=== PATIENT | female | born 1965 ===

== ENCOUNTER 2022-12-14 11:00 | Emergency (ER) | payer OTHER, SELFPAY ==
--- NOTE | ~2022-12-14 | US_ITS ---
EXAMINATION: US ABDOMEN LIMITED CLINICAL INFORMATION: Right upper quadrant pain.. COMPARISON: None available. TECHNIQUE: Real-time imaging of the right upper quadrant abdominal viscera. FINDINGS: GALLBLADDER: There are echogenic gallstones with mild wall thickening measuring 0.4 cm. There is trace fluid within the gallbladder wall. No pericholecystic fluid collection seen. There is no tenderness in right upper quadrant. COMMON BILE DUCT: Normal in caliber measuring 1.0 cm in diameter. US/US abdomen limited IMPRESSION: 1. Cholelithiasis with mild wall thickening and trace fluid within the gallbladder wall. There is no tenderness in right upper quadrant by ultrasound probe. 2. Mild common bile duct dilatation measuring 1.0 cm.
--- NOTE | ~2022-12-14 | XR_ITS ---
EXAMINATION: XR CHEST CLINICAL INFORMATION: Chest pain COMPARISON: None available. TECHNIQUE: 2 views of the chest were obtained. FINDINGS: There is no pneumothorax, pleural reaction, infiltrate, or effusion. An oval density central right upper lobe 1.2 x 1.6 cm likely represents artifact, corresponding to the overlying first costochondral junction. The heart is normal in size. The hilar and mediastinal contours are normal. There is dextrocurvature lower thoracic spine and levocurvature upper lumbar spine. No paraspinal soft tissue swelling. XR/XR chest 2V IMPRESSION: -Oval density right upper lobe approximately 1.5 cm likely artifact from overlying first costochondral junction. Recommend apical lordotic chest x-ray to exclude pulmonary parenchymal lesion. -No pneumothorax, infiltrate, or effusion.
--- NOTE | 2022-12-14 11:02 | ECG_ITS ---
Test Reason : CHEST PAIN Blood Pressure : / mmHG Vent. Rate : 089 BPM Atrial Rate : 089 BPM P-R Int : 130 ms QRS Dur : 084 ms QT Int : 398 ms P-R-T Axes : 049 044 048 degrees QTc Int : 484 ms Normal sinus rhythm Prolonged QT Abnormal ECG No previous ECGs available Referred By: Generic ED Physician Electronically Signed By:WESTON HOOD MD
[2022-12-14 11:08] VITALS: BP 111/69; PULSE 92; RESP 18; TEMP 36.6; O2SAT 100; BMI 21.6
--- NOTE | 2022-12-14 11:19 | ED_ITS ---
HPI - General Adult General Chief complaint: Abdominal Pain <Feliberto Arciniega - Last Filed: 12/14/22 11:20> Stated complaint: chest pain <Feliberto Arciniega - Last Filed: 12/14/22 11:20> Time Seen by Provider: 12/14/22 17:23 <Feliberto Arciniega - Last Filed: 12/14/22 11:20> Source: patient <Dustin Dan MD - Last Filed: 12/15/22 02:05> Mode of arrival: ambulatory <Dustin Dan MD - Last Filed: 12/15/22 02:05> Limitations: no limitations <Dustin Dan MD - Last Filed: 12/15/22 02:05> History of Present Illness HPI narrative: Patient complaining of abdominal pain mostly in the left side and epigastric since yesterday onto 2 times earlier today pain at this time is much better and slight pain noticed on the left side or on her right side never had similar pain in the past no fever no chills symptoms no abdominal distension normal bowel movements <Dustin Dan MD - Last Filed: 12/15/22 02:05> Related Data Home medications: Previous Rx's Medication Instructions Recorded ondansetron 4 mg disintegrating 4 mg PO Q6-8H PRN nausea and 12/14/22 tablet vomiting #7 tabs tramadol 50 mg tablet 50 mg PO Q6H PRN pain #20 tabs 12/14/22 <Feliberto Arciniega - Last Filed: 12/14/22 11:20> Allergies/adverse reactions: Allergies Allergy/AdvReac Type Severity Reaction Status Date / Time No Known Allergies Allergy Unverified 06/11/20 16:28 [No Known Allergies*] <Feliberto Arciniega - Last Filed: 12/14/22 11:20> Review of Systems Review of Systems: Yes all other systems are reviewed and are negative <Dustin Dan MD - Last Filed: 12/15/22 02:05> PMFSH Past Medical History Medical History: Medical History No pertinent past medical history <Feliberto Arciniega - Last Filed: 12/14/22 11:20> Social History Social History: Social History Alcohol intake: never Smoked in Last 30 Days: No Use of substances other than those prescribed or required for medical reasons: No Advance Directives: No Advance Directives Information Provided: Yes Patient : No <Feliberto Arciniega - Last Filed: 12/14/22 11:20> Physical Exam ED Vital Signs: Vital Signs - 24 hr 12/14/22 11:08 12/14/22 15:04 12/14/22 19:29 Temperature 97.8 F 97.7 F 98.3 F Pulse Rate 92 96 85 Respiratory Rate 18 16 18 Blood Pressure 111/69 138/91 H 133/74 Pulse Oximetry 100 98 97 Oxygen Delivery Method Room Air Room Air Room Air 12/14/22 20:17 Temperature 98.3 F Pulse Rate 88 Respiratory Rate 18 Blood Pressure 149/63 H Pulse Oximetry 99 Oxygen Delivery Method Room Air BMI result Body Mass Index 21.6 <Feliberto Arciniega - Last Filed: 12/14/22 11:20> Vital Signs - 24 hr 12/14/22 11:08 12/14/22 15:04 12/14/22 19:29 Temperature 97.8 F 97.7 F 98.3 F Pulse Rate 92 96 85 Respiratory Rate 18 16 18 Blood Pressure 111/69 138/91 H 133/74 Pulse Oximetry 100 98 97 Oxygen Delivery Method Room Air Room Air Room Air 12/14/22 20:17 Temperature 98.3 F Pulse Rate 88 Respiratory Rate 18 Blood Pressure 149/63 H Pulse Oximetry 99 Oxygen Delivery Method Room Air BMI result Body Mass Index 21.6 <Dustin Dan MD - Last Filed: 12/15/22 02:05> Appearance: Alert. Oriented X3. No acute distress. Eyes: No pallor or icterus ENT: Pharynx normal. Oral Mucosa moist Neck: Normal inspection. Neck supple. CVS: Normal heart rate and rhythm. Pulses normal. Respiratory: No respiratory distress. Equal air entry bilateral, no wheez ing/rales/rhonchi Abdomen: Soft , mild left upper abdominal tenderness no rebound tenderness without Bowel sounds are present, no mass palpable, no CVA tenderness Skin: Skin warm and dry. Normal skin color. Normal skin turgor. Extremities: No lower extremity edema. No calf tenderness Neuro: Oriented X 3. No motor deficit. <Dustin Dan MD - Last Filed: 12/15/22 02:05> Course Course Course Narrative: RME- patient presents for evaluation of what she describes as chest pain, which she appears to be holding her epigastric area. She complains of pain with nausea and vomiting x3 days. Cardiac workup as well as a CMP with LFTs and lipase have been ordered <Feliberto Arciniega - Last Filed: 12/14/22 11:20> Medical Decision Making Medical Decision Making [facility] Narrative: Patient nonspecific left upper abdomen and epigastric tenderness ultrasound was done to rule out cholecystitis Miguel sign was negative show some gallstones without any signs of cholecystitis patient is pain-free at this time discharge patient home advised to follow with surgeon <Dustin Dan MD - Last Filed: 12/15/22 02:05> Lab Data [facility] Lab Attestation statement: I reviewed the patient's lab results. <Dustin Dan MD - Last Filed: 12/15/22 02:05> Result Diagrams: 12/14/22 11:17 12/14/22 11:17 <Feliberto Arciniega - Last Filed: 12/14/22 11:20> Labs: Lab Results 12/14/22 12/14/22 12/14/22 Range/Units 11:17 11:17 11:17 WBC 13.0 H (4.8-10.8) X10*3/uL RBC 4.10 L (4.20-5.50) X10*6/uL Hgb 12.9 (12.0-16.0) g/dl Hct 37.1 (37.0-47.0) % MCV 90.5 (80.0-98.0) fL MCH 31.5 (27.0-33.0) pg MCHC 34.8 (31.0-35.0) g/dl RDW 12.3 (11.0-16.0) % Plt Count 261 (160-400) X10*3/uL MPV 9.4 (9.4-12.3) fL Immature Gran % (Auto) 0.3 (0.0-0.4) % Neut % (Auto) 85.7 H (45-73) % Lymph % (Auto) 8.7 L (20-40) % [place] % (Auto) 5.1 (2-11) % Eos % (Auto) 0.0 (0-4) % Baso % (Auto) 0.2 (0-2) % Lymph # (Auto) 1.1 L (1.2-4.9) X10*3/uL [place] # (Auto) 0.7 (0.1-1.2) X10*3/uL Eos # (Auto) 0.0 (0.0-0.4) X10*3/uL Baso # (Auto) 0.0 (0.0-0.2) X10*3/uL Abs Immat Gran (auto) 0.04 H (0.00-0.03) X10*3/uL Absolute Neuts (auto) 11.2 H (2.0-8.3) x10*3/uL Absolute Nucleated RBC 0.000 (0.0-0.012) X10*3/uL Nucleated RBC % (auto) 0.0 (0.0-0.2) /100WBC Sodium 142 (135-145) mmol/L Potassium 3.5 (3.3-5.1) mmol/L Chloride 108 (96-108) mmol/L Carbon Dioxide 23 (22-29) mmol/L Anion Gap 15 (12-20) BUN 11 (9-16) mg/dL Creatinine 0.68 (0.5-1.4) mg/dL Estim Creat Clear Calc 55.6 Estimated GFR > 60 Random Glucose 150 H (60-115) mg/dL Calcium 8.9 (8.4-10.2) mg/dL Total Bilirubin 1.6 H (0.0-1.0) mg/dL AST 92 H (5-31) U/L ALT 44 H (0-31) U/L Alkaline Phosphatase 96 (39-117) U/L Troponin I High Sens < 3.5 (<3.5-17.0) ng/L Total Protein 6.9 (6.5-8.0) g/dL Albumin 4.5 (3.5-5.0) g/dL Lipase 24 (8-78) U/L Urine Color Urine Appearance Urine pH (5.0-9.0) Ur Specific [place] (1.005-1.025) Urine Protein (Neg-Trace) mg/dL Urine Glucose (UA) (Negative) mg/dL Urine Ketones (Negative) mg/dL Urine Blood (Negative) Urine Nitrite (Negative) Ur Leukocyte Esterase (Negative) Urine RBC (0-2) /HPF Urine WBC (0-5) /HPF Ur Squamous Epith Cells (0-2) /HPF Urine Bacteria (None Seen) Hyaline Casts (0-2) /LPF 12/14/22 Range/Units 19:06 WBC (4.8-10.8) X10*3/uL RBC (4.20-5.50) X10*6/uL Hgb (12.0-16.0) g/dl Hct (37.0-47.0) % MCV (80.0-98.0) fL MCH (27.0-33.0) pg MCHC (31.0-35.0) g/dl RDW (11.0-16.0) % Plt Count (160-400) X10*3/uL MPV (9.4-12.3) fL Immature Gran % (Auto) (0.0-0.4) % Neut % (Auto) (45-73) % Lymph % (Auto) (20-40) % [place] % (Auto) (2-11) % Eos % (Auto) (0-4) % Baso % (Auto) (0-2) % Lymph # (Auto) (1.2-4.9) X10*3/uL [place] # (Auto) (0.1-1.2) X10*3/uL Eos # (Auto) (0.0-0.4) X10*3/uL Baso # (Auto) (0.0-0.2) X10*3/uL Abs Immat Gran (auto) (0.00-0.03) X10*3/uL Absolute Neuts (auto) (2.0-8.3) x10*3/uL Absolute Nucleated RBC (0.0-0.012) X10*3/uL Nucleated RBC % (auto) (0.0-0.2) /100WBC Sodium (135-145) mmol/L Potassium (3.3-5.1) mmol/L Chloride (96-108) mmol/L Carbon Dioxide (22-29) mmol/L Anion Gap (12-20) BUN (9-16) mg/dL Creatinine (0.5-1.4) mg/dL Estim Creat Clear Calc Estimated GFR Random Glucose (60-115) mg/dL Calcium (8.4-10.2) mg/dL Total Bilirubin (0.0-1.0) mg/dL AST (5-31) U/L ALT (0-31) U/L Alkaline Phosphatase (39-117) U/L Troponin I High Sens (<3.5-17.0) ng/L Total Protein (6.5-8.0) g/dL Albumin (3.5-5.0) g/dL Lipase (8-78) U/L Urine Color Dark Yellow Urine Appearance Turbid Urine pH >= 9.0 (5.0-9.0) Ur Specific [place] 1.025 (1.005-1.025) Urine Protein 30 (1+) H (Neg-Trace) mg/dL Urine Glucose (UA) Negative (Negative) mg/dL Urine Ketones Trace (Negative) mg/dL Urine Blood Negative (Negative) Urine Nitrite Negative (Negative) Ur Leukocyte Esterase Trace H (Negative) Urine RBC 6-10 H (0-2) /HPF Urine WBC 0-5 (0-5) /HPF Ur Squamous Epith Cells 0-2 (0-2) /HPF Urine Bacteria None Seen (None Seen) Hyaline Casts 0-2 (0-2) /LPF <Feliberto Arciniega - Last Filed: 12/14/22 11:20> Lab Results 12/14/22 12/14/22 12/14/22 Range/Units 11:17 11:17 11:17 WBC 13.0 H (4.8-10.8) X10*3/uL RBC 4.10 L (4.20-5.50) X10*6/uL Hgb 12.9 (12.0-16.0) g/dl Hct 37.1 (37.0-47.0) % MCV 90.5 (80.0-98.0) fL MCH 31.5 (27.0-33.0) pg MCHC 34.8 (31.0-35.0) g/dl RDW 12.3 (11.0-16.0) % Plt Count 261 (160-400) X10*3/uL MPV 9.4 (9.4-12.3) fL Immature Gran % (Auto) 0.3 (0.0-0.4) % Neut % (Auto) 85.7 H (45-73) % Lymph % (Auto) 8.7 L (20-40) % [place] % (Auto) 5.1 (2-11) % Eos % (Auto) 0.0 (0-4) % Baso % (Auto) 0.2 (0-2) % Lymph # (Auto) 1.1 L (1.2-4.9) X10*3/uL [place] # (Auto) 0.7 (0.1-1.2) X10*3/uL Eos # (Auto) 0.0 (0.0-0.4) X10*3/uL Baso # (Auto) 0.0 (0.0-0.2) X10*3/uL Abs Immat Gran (auto) 0.04 H (0.00-0.03) X10*3/uL Absolute Neuts (auto) 11.2 H (2.0-8.3) x10*3/uL Absolute Nucleated RBC 0.000 (0.0-0.012) X10*3/uL Nucleated RBC % (auto) 0.0 (0.0-0.2) /100WBC Sodium 142 (135-145) mmol/L Potassium 3.5 (3.3-5.1) mmol/L Chloride 108 (96-108) mmol/L Carbon Dioxide 23 (22-29) mmol/L Anion Gap 15 (12-20) BUN 11 (9-16) mg/dL Creatinine 0.68 (0.5-1.4) mg/dL Estim Creat Clear Calc 55.6 Estimated GFR > 60 Random Glucose 150 H (60-115) mg/dL Calcium 8.9 (8.4-10.2) mg/dL Total Bilirubin 1.6 H (0.0-1.0) mg/dL AST 92 H (5-31) U/L ALT 44 H (0-31) U/L Alkaline Phosphatase 96 (39-117) U/L Troponin I High Sens < 3.5 (<3.5-17.0) ng/L Total Protein 6.9 (6.5-8.0) g/dL Albumin 4.5 (3.5-5.0) g/dL Lipase 24 (8-78) U/L Urine Color Urine Appearance Urine pH (5.0-9.0) Ur Specific [place] (1.005-1.025) Urine Protein (Neg-Trace) mg/dL Urine Glucose (UA) (Negative) mg/dL Urine Ketones (Negative) mg/dL Urine Blood (Negative) Urine Nitrite (Negative) Ur Leukocyte Esterase (Negative) Urine RBC (0-2) /HPF Urine WBC (0-5) /HPF Ur Squamous Epith Cells (0-2) /HPF Urine Bacteria (None Seen) Hyaline Casts (0-2) /LPF 12/14/22 Range/Units 19:06 WBC (4.8-10.8) X10*3/uL RBC (4.20-5.50) X10*6/uL Hgb (12.0-16.0) g/dl Hct (37.0-47.0) % MCV (80.0-98.0) fL MCH (27.0-33.0) pg MCHC (31.0-35.0) g/dl RDW (11.0-16.0) % Plt Count (160-400) X10*3/uL MPV (9.4-12.3) fL Immature Gran % (Auto) (0.0-0.4) % Neut % (Auto) (45-73) % Lymph % (Auto) (20-40) % [place] % (Auto) (2-11) % Eos % (Auto) (0-4) % Baso % (Auto) (0-2) % Lymph # (Auto) (1.2-4.9) X10*3/uL [place] # (Auto) (0.1-1.2) X10*3/uL Eos # (Auto) (0.0-0.4) X10*3/uL Baso # (Auto) (0.0-0.2) X10*3/uL Abs Immat Gran (auto) (0.00-0.03) X10*3/uL Absolute Neuts (auto) (2.0-8.3) x10*3/uL Absolute Nucleated RBC (0.0-0.012) X10*3/uL Nucleated RBC % (auto) (0.0-0.2) /100WBC Sodium (135-145) mmol/L Potassium (3.3-5.1) mmol/L Chloride (96-108) mmol/L Carbon Dioxide (22-29) mmol/L Anion Gap (12-20) BUN (9-16) mg/dL Creatinine (0.5-1.4) mg/dL Estim Creat Clear Calc Estimated GFR Random Glucose (60-115) mg/dL Calcium (8.4-10.2) mg/dL Total Bilirubin (0.0-1.0) mg/dL AST (5-31) U/L ALT (0-31) U/L Alkaline Phosphatase (39-117) U/L Troponin I High Sens (<3.5-17.0) ng/L Total Protein (6.5-8.0) g/dL Albumin (3.5-5.0) g/dL Lipase (8-78) U/L Urine Color Dark Yellow Urine Appearance Turbid Urine pH >= 9.0 (5.0-9.0) Ur Specific [place] 1.025 (1.005-1.025) Urine Protein 30 (1+) H (Neg-Trace) mg/dL Urine Glucose (UA) Negative (Negative) mg/dL Urine Ketones Trace (Negative) mg/dL Urine Blood Negative (Negative) Urine Nitrite Negative (Negative) Ur Leukocyte Esterase Trace H (Negative) Urine RBC 6-10 H (0-2) /HPF Urine WBC 0-5 (0-5) /HPF Ur Squamous Epith Cells 0-2 (0-2) /HPF Urine Bacteria None Seen (None Seen) Hyaline Casts 0-2 (0-2) /LPF <Dustin Dan MD - Last Filed: 12/15/22 02:05> Discharge Plan Discharge Clinical Impression: Biliary colic, Gallstone <Feliberto Arciniega - Last Filed: 12/14/22 11:20> Patient Disposition: Home, Self-Care <Feliberto Arciniega - Last Filed: 12/14/22 11:20> Instructions: Biliary Colic (ED), Gallstones (ED) <Feliberto Arciniega - Last Filed: 12/14/22 11:20> Additional Instructions: Drink plenty of fluids Avoid fried food Follow-up with surgeon Report to the ER if worsening of pain/vomiting Pain medication and nausea medication as prescribed <Feliberto Arciniega - Last Filed: 12/14/22 11:20> Prescriptions: New tramadol 50 mg tablet 50 mg PO Q6H PRN (Reason: pain) Qty: 20 0RF ondansetron 4 mg tablet,disintegrating 4 mg PO Q6-8H PRN (Reason: nausea and vomiting) Qty: 7 0RF <Feliberto Arciniega - Last Filed: 12/14/22 11:20> Referrals: Sascha Pope MD [Physician] - 1 week <Feliberto Arciniega - Last Filed: 12/14/22 11:20> Stand Alone Forms: Work/School Release <Feliberto Arciniega - Last Filed: 12/14/22 11:20> Interventions: ED Discharge Assessment Last Done: 12/14/22 20:20 <Feliberto Arciniega - Last Filed: 12/14/22 11:20> Discharge Date/Time: 12/14/22 20:21 <Feliberto Arciniega - Last Filed: 12/14/22 11:20> Print Language: Syrian <Feliberto Arciniega - Last Filed: 12/14/22 11:20>
[2022-12-14 11:22] LABS: Basophils Percent Auto 0.2 % (0-2); Hematocrit 37.1 % (37.0-47.0); Hemoglobin 12.9 g/dl (12.0-16.0); Imm Gran Abs Auto 0.04 X10*3/uL (0.00-0.03); Imm Gran Pct Auto 0.3 % (0.0-0.4); Lymphocytes Absolute Auto 1.1 X10*3/uL (1.2-4.9); Lymphocytes Percent Auto 8.7 % (20-40); MANUAL DIFF FLAG NO; Mean Corpuscular HGB Conc 34.8 g/dl (31.0-35.0); Mean Corpuscular Hemoglobin 31.5 pg (27.0-33.0); Mean Corpuscular Volume 90.5 fL (80.0-98.0); Mean Platelet Volume 9.4 fL (9.4-12.3); Monocytes Absolute Auto 0.7 X10*3/uL (0.1-1.2); Monocytes Percent Auto 5.1 % (2-11); Neutrophils Absolute Auto 11.2 x10*3/uL (2.0-8.3); Neutrophils Percent Auto 85.7 % (45-73); Platelet Count 261 X10*3/uL (160-400); Red Cell Distribution Width 12.3 % (11.0-16.0)
[2022-12-14 11:41] LABS: Alanine Aminotransferase 44 U/L (0-31); Albumin Level 4.5 g/dL (3.5-5.0); Alkaline Phosphatase 96 U/L (39-117); Anion Gap 15 (12-20); Aspartate Amino Transferase 92 U/L (5-31); Bilirubin Total 1.6 mg/dL (0.0-1.0); Blood Urea Nitrogen 11 mg/dL (9-16); Calcium 8.9 mg/dL (8.4-10.2); Carbon Dioxide 23 mmol/L (22-29); Chloride 108 mmol/L (96-108); Creatinine Clr Calc Pharmacy 55.6; Estimated Glomerular Filt Rate > 60; Glucose Random 150 mg/dL (60-115); Lipase 24 U/L (8-78); Potassium 3.5 mmol/L (3.3-5.1); Sodium 142 mmol/L (135-145); Total Protein 6.9 g/dL (6.5-8.0)
[2022-12-14 11:56] LABS: Troponin-I High Sensitivity < 3.5 ng/L (<3.5-17.0)
[2022-12-14 15:04] VITALS: BP 138/91; PULSE 96; RESP 16; TEMP 36.5; O2SAT 98
[2022-12-14 19:14] LABS: Appearance Urine Turbid; Color Urine Dark Yellow; Glucose Urine UA Negative (Negative); Leukocyte Esterase Urine Trace (Negative); Nitrite Urine Negative (Negative); PH >= 9.0 (5.0-9.0); Specific Gravity - Urine 1.025 (1.005-1.025); UMIC TRIGGER UACC YES; Urine Blood Negative (Negative); Urine Ketones Trace mg/dL (Negative); Urine Protein 30 (1+) mg/dL (Neg-Trace)
[2022-12-14 19:23] LABS: Bacteria Urine None Seen (None Seen); Hyaline Casts Urine 0-2 /LPF (0-2); Squamous Epithelial Cell Urine 0-2 /HPF (0-2); WBC Urine 0-5 /HPF (0-5)
[2022-12-14 19:29] VITALS: BP 133/74; PULSE 85; RESP 18; TEMP 36.8; O2SAT 97
[2022-12-14 20:17] VITALS: BP 149/63; PULSE 88; RESP 18; TEMP 36.8; O2SAT 99
--- NOTE | 2022-12-14 20:18 | PC.NURSE ---
patient a&ox3, currently denying pain, vss, family at bedside, pt discharging- this nurse is performing the discharge for another nurse float nurse
== END 2022-12-14 20:21 | disposition home or self-care (01) ==
PROVIDERS: Emergency Provider Internal Medicine
DX: K80.70 Calculus of gallbladder and bile duct without cholecystitis without obstruction (principal); R10.9 Unspecified abdominal pain
CPT/HCPCS: 36415; 71046; 76705; 80053; 81001; 83690; 84484; 85025; 93005; 99284

== ENCOUNTER → 2022-12-15 12:42 | Outpatient (BNVA) | payer OTHER, SELFPAY | PROVIDERS: PCP Internal Medicine; Visit Provider Surgery | DX: Z13.89 Encounter for screening for other disorder (principal) ==

== ENCOUNTER 2022-12-20 05:36 | Inpatient (IN) | payer OTHER, SELFPAY ==
--- NOTE | ~2022-12-20 | US_ITS ---
EXAMINATION: US ABDOMEN LIMITED CLINICAL INFORMATION: Pain, cholelithiasis. COMPARISON: 12/14/2022 TECHNIQUE: Real-time imaging of the right upper quadrant abdominal viscera. FINDINGS: GALLBLADDER: Multiple stones are again seen. No abnormal gallbladder wall thickening or pericholecystic fluid. COMMON BILE DUCT: Again is dilated measuring 0.8 cm in diameter, previously measuring up to 1.0 cm. US/US abdomen limited IMPRESSION: Cholelithiasis without findings to suggest cholecystitis. Mildly improved common bile duct dilatation.
[2022-12-20 05:42] VITALS: BP 144/78; PULSE 111; RESP 18; TEMP 36.8; O2SAT 99; BMI 20.5
[2022-12-20 06:01] LABS: Basophils Percent Auto 0.4 % (0-2); Eosinophils Absolute Auto 0.1 X10*3/uL (0.0-0.4); Eosinophils Percent Auto 0.9 % (0-4); Hematocrit 39.6 % (37.0-47.0); Hemoglobin 13.3 g/dl (12.0-16.0); Imm Gran Abs Auto 0.01 X10*3/uL (0.00-0.03); Imm Gran Pct Auto 0.2 % (0.0-0.4); Lymphocytes Absolute Auto 1.6 X10*3/uL (1.2-4.9); Lymphocytes Percent Auto 28.5 % (20-40); MANUAL DIFF FLAG NO; Mean Corpuscular HGB Conc 33.6 g/dl (31.0-35.0); Mean Corpuscular Hemoglobin 31.1 pg (27.0-33.0); Mean Corpuscular Volume 92.7 fL (80.0-98.0); Mean Platelet Volume 9.2 fL (9.4-12.3); Monocytes Absolute Auto 0.5 X10*3/uL (0.1-1.2); Monocytes Percent Auto 9.2 % (2-11); Neutrophils Absolute Auto 3.3 x10*3/uL (2.0-8.3); Neutrophils Percent Auto 60.8 % (45-73); Platelet Count 316 X10*3/uL (160-400); Red Blood Count 4.27 X10*6/uL (4.20-5.50); Red Cell Distribution Width 12.2 % (11.0-16.0); White Blood Count 5.4 X10*3/uL (4.8-10.8)
[2022-12-20 06:23] LABS: Alanine Aminotransferase 20 U/L (0-31); Albumin Level 4.6 g/dL (3.5-5.0); Alkaline Phosphatase 92 U/L (39-117); Anion Gap 12 (12-20); Aspartate Amino Transferase 18 U/L (5-31); Bilirubin Direct 0.2 mg/dL (0.0-0.5); Bilirubin Total 0.9 mg/dL (0.0-1.0); Blood Urea Nitrogen 10 mg/dL (9-16); Calcium 9.5 mg/dL (8.4-10.2); Carbon Dioxide 26 mmol/L (22-29); Chloride 108 mmol/L (96-108); Creatinine Clr Calc Pharmacy 65.5; Estimated Glomerular Filt Rate > 60; Glucose Random 101 mg/dL (60-115); Lipase 21 U/L (8-78); Sodium 142 mmol/L (135-145); Total Protein 7.1 g/dL (6.5-8.0)
[2022-12-20 06:46] VITALS: BP 119/60; PULSE 83; RESP 16; TEMP 36.5; O2SAT 100
--- NOTE | 2022-12-20 07:28 | ED_ITS ---
HPI - General Adult General Chief complaint: Back Pain/Injury Stated complaint: Kidney stones Time Seen by Provider: 12/20/22 06:47 Source: patient, family (Spouse) and engineer of system development Mode of arrival: ambulatory Limitations: no limitations History of Present Illness HPI narrative: 57-year-old female Divehi-speaking only came in for evaluation of upper abdominal/right flank pain, patient was seen recently in the emergency department found found to have cholelithiasis sent home with pain medication with no relief returned today for a constant right upper quadrant abdominal pain and right flank pain with nausea and vomiting. Patient had no past surgical history in the past. No fever, no chills. Patient was sent home on pain medication which is not relieving her symptoms. Related Data Previous Rx's Medication Instructions Recorded ondansetron 4 mg disintegrating 4 mg PO Q6-8H PRN nausea and 12/14/22 tablet vomiting #7 tabs tramadol 50 mg tablet 50 mg PO Q6H PRN pain #20 tabs 12/14/22 Allergies Allergy/AdvReac Type Severity Reaction Status Date / Time No Known Allergies Allergy Verified 12/20/22 05:45 [No Known Allergies*] Review of Systems Review of Systems: All other systems are reviewed and are negative Constitutional: Reports as per HPI and Reports no additional constitutional complaints Eyes: Reports as per HPI and Reports no additional eye complaints Reports system reviewed and no additional complaints, except as documented Cardiovascular: Reports as per HPI and Reports no additional cardiovascular complaints Respiratory: Reports as per HPI and Reports no additional respiratory complaints Gastrointestinal: Reports as per HPI and Reports no additional gastrointestinal complaints Genitourinary: Reports no additional female genitourinary complaints Musculoskeletal: Reports no additional musculoskeletal complaints Skin/Breast: Reports system reviewed and no additional complaints, except as docu Psychiatric: Reports no additional psychiatric complaints Endocrine: Reports no additional endocrine complaints Hematologic/Lymphatic: Reports no additional hematologic/lymphatic complaints Allergic/Immunologic: Reports no additional allergic/immunologic complaints Reports system reviewed and no additional complaints, except as documented and Reports Abnormal speech present [facility] Past Medical History Medical History section wound complications (~1988) No pertinent past medical history Social History Social History Household Members: Spouse Housing: Apartment Alcohol intake: never Patient Tobacco Use Status: Never used Tobacco Advance Directives: No Physical Exam ED Vital Signs: Vital Signs - 24 hr 12/20/22 05:42 12/20/22 06:46 12/20/22 08:07 Temperature 98.3 F 97.7 F 98.3 F Pulse Rate 111 H 83 93 Respiratory Rate 18 16 14 Blood Pressure 144/78 H 119/60 134/61 Pulse Oximetry 99 100 100 Oxygen Delivery Method Room Air Room Air Room Air BMI result Body Mass Index 20.5 Vital signs have been reviewed as appeared to be correct. Blood pressure normal. Heart rate normal. Respiration rate normal. Temperature normal. Oxygen saturation normal. Appearance: Alert. Oriented X3. No acute distress. Head: Normal external exam. Normocephalic. Atraumatic. No Reyes signs noted. No raccoon eyes noted Eyes: PERRLA. EOMI. Conjunctiva and sclera normal. Eyelids normal. ENT: TM's Normal. Pharynx normal. Uvula midline. Moist mucous membranes. No trismus noted. No drooling noted. No muffled voice noted. Neck: Normal inspection. Neck supple. FROM. No adenopathy. Thyroid Normal. No meningeal signs. No neck mass noted. CVS: Normal heart rate and rhythm. Heart sound normal. No murmurs noted. Pulses normal throughout. Respiratory: No respiratory distress. Painless inspiration. Breath sounds normal. No wheezes/rales/rhonchi noted. Chest nontender. No accessory muscle usage noted or decreased air movement noted. Abdomen: Soft, right upper quadrant tenderness, no rebound tenderness. Bowel sounds normal in all 4 quadrants. No distention noted. No organomegaly noted. No visible injury noted. Back: No CVA tenderness. Full range of motion noted. Skin: Skin warm and dry. Normal skin color. Normal skin turgor. No ra shes/lesions/lacerations noted. Extremities: No lower extremity edema. Extremities exhibit normal range of motion. Extremities nontender. Neuro: Oriented X 3. Cranial nerve exam: II-XII are grossly intact No motor deficit. No sensory deficit. Reflexes normal. Course Course Course Narrative: 57-year-old female return to the emergency department for abdominal pain due to cholelithiasis with no discrete acute cholecystitis. Patient is already scheduled for laparoscopic cholecystectomy by Dr. Pope in 2 weeks, patient was seen and evaluated by surgery in the emergency department and decision was made to admit for surgery. Medications Administered Discontinued Medications Generic Name Dose Route Start Last Admin Trade Name Julioq PRN Reason Stop Dose Admin Sodium Chloride 1,000 mls @ 999 mls/hr 12/20/22 07:07 12/20/22 08:36 Ns IV 12/20/22 08:07 Infused .Q1H1M ONE Infusion Piperacillin Sod/Tazobactam 50 mls @ 100 mls/hr 12/20/22 08:00 12/20/22 09:31 Sod 3.375 gm/ Sodium Chloride IV 12/20/22 08:29 Infused ONCE ONE Infusion Sodium Chloride 1,000 mls @ 999 mls/hr 12/20/22 08:01 12/20/22 09:40 Ns IV 12/20/22 09:01 Infused .Q1H1M ONE Infusion Ketorolac Tromethamine 15 mg 12/20/22 07:08 12/20/22 07:38 Ketorolac Tromethamine 15 Mg/Ml Vial IVPUSH 12/20/22 07:09 15 mg ONCE ONE Administration Morphine Sulfate 2 mg 12/20/22 07:07 12/20/22 07:38 Morphine Sulfate 2 Mg/Ml Cartridge IVPUSH 12/20/22 07:08 2 mg ONCE ONE Administration Protocol Ondansetron HCl 4 mg 12/20/22 07:07 12/20/22 07:38 Ondansetron Hcl 4 Mg/2 Ml Vial IVPUSH 12/20/22 07:08 4 mg ONCE ONE Administration Medical Decision Making Differential Diagnosis Differential Diagnoses: The differential diagnosis associated with the presentation includes (Cholelithiasis, acute cholecystitis, kidney stone.) Admission/Observation Consideration of admission/observation: Escalation of care including admission/observation considered Consult Healthcare Provider Management of the patient was discussed with: Watchmaker Apprentice (Dr. Pope) Lab Data MDM Lab Attestation statement: I reviewed the patient's lab results. 12/20/22 05:57 12/20/22 05:57 Labs: Lab Results 12/20/22 12/20/22 12/20/22 Range/Units 05:57 05:57 07:25 WBC 5.4 (4.8-10.8) X10*3/uL RBC 4.27 (4.20-5.50) X10*6/uL Hgb 13.3 (12.0-16.0) g/dl Hct 39.6 (37.0-47.0) % MCV 92.7 (80.0-98.0) fL MCH 31.1 (27.0-33.0) pg MCHC 33.6 (31.0-35.0) g/dl RDW 12.2 (11.0-16.0) % Plt Count 316 (160-400) X10*3/uL MPV 9.2 L (9.4-12.3) fL Immature Gran % (Auto) 0.2 (0.0-0.4) % Neut % (Auto) 60.8 (45-73) % Lymph % (Auto) 28.5 (20-40) % [place] % (Auto) 9.2 (2-11) % Eos % (Auto) 0.9 (0-4) % Baso % (Auto) 0.4 (0-2) % Lymph # (Auto) 1.6 (1.2-4.9) X10*3/uL [place] # (Auto) 0.5 (0.1-1.2) X10*3/uL Eos # (Auto) 0.1 (0.0-0.4) X10*3/uL Baso # (Auto) 0.0 (0.0-0.2) X10*3/uL Abs Immat Gran (auto) 0.01 (0.00-0.03) X10*3/uL Absolute Neuts (auto) 3.3 (2.0-8.3) x10*3/uL Absolute Nucleated RBC 0.000 (0.0-0.012) X10*3/uL Nucleated RBC % (auto) 0.0 (0.0-0.2) /100WBC Sodium 142 (135-145) mmol/L Potassium 4.0 (3.3-5.1) mmol/L Chloride 108 (96-108) mmol/L Carbon Dioxide 26 (22-29) mmol/L Anion Gap 12 (12-20) BUN 10 (9-16) mg/dL Creatinine 0.68 (0.5-1.4) mg/dL Estim Creat Clear Calc 65.5 Estimated GFR > 60 Random Glucose 101 (60-115) mg/dL Calcium 9.5 D (8.4-10.2) mg/dL Total Bilirubin 0.9 (0.0-1.0) mg/dL Direct Bilirubin 0.2 (0.0-0.5) mg/dL AST 18 (5-31) U/L ALT 20 (0-31) U/L Alkaline Phosphatase 92 (39-117) U/L Total Protein 7.1 (6.5-8.0) g/dL Albumin 4.6 (3.5-5.0) g/dL Lipase 21 (8-78) U/L Urine Color Yellow Urine Appearance Clear Urine pH 7.5 (5.0-9.0) Ur Specific [place] 1.010 (1.005-1.025) Urine Protein Negative (Neg-Trace) mg/dL Urine Glucose (UA) Negative (Negative) mg/dL Urine Ketones Negative (Negative) mg/dL Urine Blood Negative (Negative) Urine Nitrite Negative (Negative) Ur Leukocyte Esterase Negative (Negative) Independent Interpretation I performed an independent interpretation of an: Ultrasound (Gallbladder: Cholelithiasis without acute cholecystitis.) Radiology Impression Discussion of test interpretation with radiology: I have reviewed the radiologist's reading. Discharge Plan Discharge Clinical Impression: Cholelithiasis, Biliary colic Patient Disposition: Admitted As Inpatient
[2022-12-20] MEDS: 0.9 % Sodium Chloride 1,000 ML 999 ML IV ×2 (07:37→08:43)
[2022-12-20 07:38] LABS: Appearance Urine Clear; Color Urine Yellow; Glucose Urine UA Negative (Negative); Leukocyte Esterase Urine Negative (Negative); Nitrite Urine Negative (Negative); PH 7.5 (5.0-9.0); Urine Blood Negative (Negative); Urine Ketones Negative (Negative); Urine Protein Negative (Neg-Trace)
[2022-12-20] MEDS: Morphine Sulfate 2 MG/ML CARTRIDGE IVPUSH (07:38)
[2022-12-20] MEDS: ondansetron HCL 4 MG/2 ML VIAL IVPUSH (07:38)
[2022-12-20] MEDS: Ketorolac Tromethamine 15 MG/ML VIAL IVPUSH (07:38)
[2022-12-20 08:07] VITALS: BP 134/61; PULSE 93; RESP 14; TEMP 36.8; O2SAT 100
[2022-12-20] MEDS: Piperacillin Sodium/Tazobactam 3.375 GM in 0.9 % Sodium Chloride 50 ML IV (08:43)
[2022-12-20 10:36] VITALS: BP 116/52; PULSE 87; RESP 12; TEMP 36.7; O2SAT 100
--- NOTE | 2022-12-20 11:16 | PC.NURSE ---
patient resting comfortably in bed. denies pain at this time. call kevin within reach. bed in lowest locked position for safety.
[2022-12-20] MEDS: Lactated Ringers 1,000 ML 80 ML IVCONT (11:43)
[2022-12-20 12:23] LABS: COVID-19 Test Negative (Negative); IDNOW Serial# 9DB6401D
--- NOTE | 2022-12-20 12:29 | PHA.MEDREC ---
Pharmacy Consult ? Medication Reconciliation Pharmacy has completed the medication reconciliation.
--- NOTE | 2022-12-20 12:47 | PC.NURSE ---
patient ambulated to the bathroom with strong steady gait
--- NOTE | 2022-12-20 15:44 | PM.HPGS ---
History of Present Illness History of Present Illness Date of Service: 12/26/22 Chief complaint: gallstones with pain Narrative: Grace Lopez is a 57 year old female with known gallstones, here in the ER because of her quadrant pain since last night. She is known to me. I had seen her in the office last week because of gallstones as she had been in the ER as well last week for biliary colic. She was doing well but because of her symptoms, she was scheduled to undergo cholecystectomy on January 03. She had this episode again last night described this as ?severe?. She currently feels better although this still have some mild pain?. She had some nausea without vomiting. Review of Systems Constitutional: Constitutional: Denies chills and Denies fever(s) Cardiovascular: Cardiovascular: Denies chest pain, Denies dyspnea and Denies dyspnea on exertion Respiratory: Respiratory: Denies cough, Denies dyspnea and Denies dyspnea on exertion Gastrointestinal: Gastrointestinal: Denies hematochezia and Denies change in bowel habits Genitourinary: Genitourinary: Denies hematuria Musculoskeletal: Musculoskeletal: Denies back pain and Denies limited range of motion Neurologic: Denies focal weakness and Denies convulsions Psychiatric: Psychiatric: Denies depression and Denies mood swings PMFSH Past Medical History Medical History section wound complications (~1988) No pertinent past medical history Social History Social History Household Members: Spouse Housing: Apartment Do you presently have visiting nurse or other home services: No Alcohol intake: never Patient Tobacco Use Status: Never used Tobacco service: No Meds Allergies Allergy/AdvReac Type Severity Reaction Status Date / Time No Known Allergies Allergy Verified 12/20/22 05:45 [No Known Allergies*] Active Medications: Current Medications Lactated Ringer's (Lr) 1,000 mls @ 80 mls/hr IVCONT .[id number] TIMI Last Admin: 12/20/22 11:43 Dose: 80 mls/hr Cefotetan Disodium 2 gm/ (Sodium Chloride) 50 mls @ 100 mls/hr IV PREOP ONE Stop: 12/21/22 12:40 Morphine Sulfate (Morphine Sulfate 2 Mg/Ml Cartridge) 2 mg IM Q3H PRN; Protocol PRN Reason: Pain, Severe (Pain Scale 7-10) Ondansetron HCl (Ondansetron Hcl 4 Mg/2 Ml Vial) 4 mg IVPUSH Q6H PRN PRN Reason: nausea Oxycodone HCl (Oxycodone Hcl Immed Release 5 Mg Tablet) 5 mg PO Q4H PRN PRN Reason: Pain, Moderate (Pain Scale 4-6 Sodium Chloride (0.9 % Sodium Chloride Flush 3 Ml Syringe) 3 ml IVFLUSH QSHIFT TIMI Physical Exam Vital Signs: Vital Signs: Last Vital Signs Temp 98.0 F 12/20/22 10:36 Pulse 87 12/20/22 10:36 Resp 12 12/20/22 10:36 BP 116/52 L 12/20/22 10:36 Pulse Ox 100 12/20/22 10:36 O2 Del Method Room Air 12/20/22 10:36 BMI result Body Mass Index 20.5 Const: General: comfortable and no acute distress Orientation/consciousness: patient oriented x3 Neck: Neck: Yes no lymphadenopathy Resp: Auscultation: clear to auscultation bilaterally Cardio: Rhythm: regular rhythm GI: Other: Some tenderness a right upper quadrant, no guarding rebound Palpation (GI): Soft to palpation, nontender and no guarding Neuro: General: patient oriented x3 Results Results Labs: Short CBC 12/20/22 Range/Units 05:57 WBC 5.4 (4.8-10.8) X10*3/uL Hgb 13.3 (12.0-16.0) g/dl Hct 39.6 (37.0-47.0) % Plt Count 316 (160-400) X10*3/uL BMP 12/20/22 05:57 Sodium 142 Potassium 4.0 Chloride 108 Carbon Dioxide 26 BUN 10 Creatinine 0.68 Calcium 9.5 D Liver Function 12/20/22 Range/Units 05:57 Total Bilirubin 0.9 (0.0-1.0) mg/dL Direct Bilirubin 0.2 (0.0-0.5) mg/dL AST 18 (5-31) U/L ALT 20 (0-31) U/L Alkaline Phosphatase 92 (39-117) U/L Albumin 4.6 (3.5-5.0) g/dL Urine 12/20/22 Range/Units 07:25 Urine Color Yellow Urine Appearance Clear Urine pH 7.5 (5.0-9.0) Ur Specific [place] 1.010 (1.005-1.025) Urine Protein Negative (Neg-Trace) mg/dL Urine Glucose (UA) Negative (Negative) mg/dL Additional studies: Laboratory Results WBC 5.4 X10*3/uL (4.8-10.8) 12/20/22 05:57 RBC 4.27 X10*6/uL (4.20-5.50) 12/20/22 05:57 Hgb 13.3 g/dl (12.0-16.0) 12/20/22 05:57 Hct 39.6 % (37.0-47.0) 12/20/22 05:57 MCV 92.7 fL (80.0-98.0) 12/20/22 05:57 MCH 31.1 pg (27.0-33.0) 12/20/22 05:57 MCHC 33.6 g/dl (31.0-35.0) 12/20/22 05:57 RDW 12.2 % (11.0-16.0) 12/20/22 05:57 Plt Count 316 X10*3/uL (160-400) 12/20/22 05:57 MPV 9.2 fL (9.4-12.3) L 12/20/22 05:57 Immature Gran % (Auto) 0.2 % (0.0-0.4) 12/20/22 05:57 Neut % (Auto) 60.8 % (45-73) 12/20/22 05:57 Lymph % (Auto) 28.5 % (20-40) 12/20/22 05:57 [place] % (Auto) 9.2 % (2-11) 12/20/22 05:57 Eos % (Auto) 0.9 % (0-4) 12/20/22 05:57 Baso % (Auto) 0.4 % (0-2) 12/20/22 05:57 Lymph # (Auto) 1.6 X10*3/uL (1.2-4.9) 12/20/22 05:57 [place] # (Auto) 0.5 X10*3/uL (0.1-1.2) 12/20/22 05:57 Eos # (Auto) 0.1 X10*3/uL (0.0-0.4) 12/20/22 05:57 Baso # (Auto) 0.0 X10*3/uL (0.0-0.2) 12/20/22 05:57 Abs Immat Gran (auto) 0.01 X10*3/uL (0.00-0.03) 12/20/22 05:57 Absolute Neuts (auto) 3.3 x10*3/uL (2.0-8.3) 12/20/22 05:57 Absolute Nucleated RBC 0.000 X10*3/uL (0.0-0.012) 12/20/22 05:57 Nucleated RBC % (auto) 0.0 /100WBC (0.0-0.2) 12/20/22 05:57 Sodium 142 mmol/L (135-145) 12/20/22 05:57 Potassium 4.0 mmol/L (3.3-5.1) 12/20/22 05:57 Chloride 108 mmol/L (96-108) 12/20/22 05:57 Carbon Dioxide 26 mmol/L (22-29) 12/20/22 05:57 Anion Gap 12 (12-20) 12/20/22 05:57 BUN 10 mg/dL (9-16) 12/20/22 05:57 Creatinine 0.68 mg/dL (0.5-1.4) 12/20/22 05:57 Estim Creat Clear Calc 65.5 12/20/22 05:57 Estimated GFR > 60 12/20/22 05:57 Random Glucose 101 mg/dL (60-115) 12/20/22 05:57 Calcium 9.5 mg/dL (8.4-10.2) D 12/20/22 05:57 Total Bilirubin 0.9 mg/dL (0.0-1.0) 12/20/22 05:57 Direct Bilirubin 0.2 mg/dL (0.0-0.5) 12/20/22 05:57 AST 18 U/L (5-31) 12/20/22 05:57 ALT 20 U/L (0-31) 12/20/22 05:57 Alkaline Phosphatase 92 U/L (39-117) 12/20/22 05:57 Total Protein 7.1 g/dL (6.5-8.0) 12/20/22 05:57 Albumin 4.6 g/dL (3.5-5.0) 12/20/22 05:57 Lipase 21 U/L (8-78) 12/20/22 05:57 Urine Color Yellow 12/20/22 07:25 Urine Appearance Clear 12/20/22 07:25 Urine pH 7.5 (5.0-9.0) 12/20/22 07:25 Ur Specific [place] 1.010 (1.005-1.025) 12/20/22 07:25 Urine Protein Negative mg/dL (Neg-Trace) 12/20/22 07:25 Urine Glucose (UA) Negative mg/dL (Negative) 12/20/22 07:25 Urine Ketones Negative mg/dL (Negative) 12/20/22 07:25 Urine Blood Negative (Negative) 12/20/22 07:25 Urine Nitrite Negative (Negative) 12/20/22 07:25 Ur Leukocyte Esterase Negative (Negative) 12/20/22 07:25 COVID-19 (LISA) Negative (Negative) 12/20/22 11:51 COVID-19 Clin Com See Note 12/20/22 11:51 Impressions Abdomen Ultrasound 12/20/22 08:00 IMPRESSION: Cholelithiasis without findings to suggest cholecystitis. Mildly improved common bile duct dilatation. Assessment and Plan (1) Biliary colic: Status: Resolved She has known gallstones and is scheduled to have laparoscopic cholecystectomy in 2 weeks. However, another episode of pain last night. Her ultrasound does not reveal evidence of cholecystitis. However, she says she continues to have pain although this has improved. She says she does not want to go home anymore because of this episode of pain and would like to undergo cholecystectomy for symptomatic gallstones during this admission. I reviewed with her the technique of laparoscopic cholecystectomy and possible open cholecystectomy. I explained the risks including but not limited to bleeding, infections, injury to other organs, bile leak, retained stones, as well as the benefits and alternatives. She understands and wants to proceed. Her pain intensity was severe so I am going to do a follow-up liver function test in the morning to make sure that her pain episode is not secondary to CBD stones. We then will proceed with laparoscopic cholecystectomy tomorrow. She understands the plan and is comfortable with this. Her family was with her during the discussion. Time Spent With Patient Time: Total time managing care of this patient today ____ minutes. Quality Stroke Does the patient have a stroke diagnosis?: No VTE Prior VTE?: No VTE Risk Level:: Medical - moderate - high VTE Device Contraindication: N/A - Device Ordered VTE Drug Contraindication: N/A - Med Ordered Procedures Date of Service Date of Service: 12/20/22
--- NOTE | 2022-12-20 16:42 | PC.NURSE ---
nurse to nurse report to Tyler DIANE
[2022-12-20 17:28] VITALS: BP 142/67; PULSE 76; RESP 18; TEMP 36.3; O2SAT 100
[2022-12-20 19:18] VITALS: BP 132/73; PULSE 70; RESP 16; TEMP 36.4; O2SAT 98
[2022-12-21] VITALS (20 sets, daily range): BP systolic 113–155; BP diastolic 60–89; PULSE 67–89; RESP 12–20; TEMP 36–36.9; O2SAT 97–100
[2022-12-21] MEDS: Lactated Ringers 1,000 ML 80 ML IVCONT ×2 (00:09→17:58)
[2022-12-21 06:36] LABS: Alanine Aminotransferase 14 U/L (0-31); Albumin Level 3.7 g/dL (3.5-5.0); Alkaline Phosphatase 74 U/L (39-117); Aspartate Amino Transferase 15 U/L (5-31); Bilirubin Direct 0.3 mg/dL (0.0-0.5); Bilirubin Total 1.2 mg/dL (0.0-1.0); Total Protein 5.9 g/dL (6.5-8.0)
--- NOTE | 2022-12-21 08:48 | PM.PNGS ---
Subjective Subjective Date of Service: 12/22/22 Interval history: she feels better denies pain but says this still has a bit of discomfort on the right upper quadrant no nausea or vomiting Physical Exam Vital Signs: Vital Signs: Last Vital Signs Temp 97.7 F 12/21/22 07:23 Pulse 85 12/21/22 07:23 Resp 18 12/21/22 07:23 BP 124/64 12/21/22 07:23 Pulse Ox 99 12/21/22 07:23 O2 Del Method Room Air 12/21/22 07:23 BMI result Body Mass Index 20.5 Const: General: comfortable and no acute distress Eyes: Other: anicteric Resp: Effort & Inspection: normal respiratory effort Cardio: Rate: regular rate GI: Palpation (GI): Soft to palpation, not firm, nontender and no guarding Objective Data Active Medications Lactated Ringer's (Lr) 1,000 mls @ 80 mls/hr IVCONT .[id number] [facility] Last Admin: 12/21/22 00:09 Dose: 80 mls/hr Documented By: REGLA Cefotetan Disodium 2 gm/ (Sodium Chloride) 50 mls @ 100 mls/hr IV PREOP ONE Stop: 12/21/22 12:40 Morphine Sulfate (Morphine Sulfate 2 Mg/Ml Cartridge) 2 mg IM Q3H PRN; Protocol PRN Reason: Pain, Severe (Pain Scale 7-10) Ondansetron HCl (Ondansetron Hcl 4 Mg/2 Ml Vial) 4 mg IVPUSH Q6H PRN PRN Reason: nausea Oxycodone HCl (Oxycodone Hcl Immed Release 5 Mg Tablet) 5 mg PO Q4H PRN PRN Reason: Pain, Moderate (Pain Scale 4-6 Sodium Chloride (0.9 % Sodium Chloride Flush 3 Ml Syringe) 3 ml IVFLUSH QSHIFT [facility] Last Admin: 12/21/22 07:16 Dose: Not Given Documented By: JOYA Non-Admin Reason: IV Running Labs 12/20/22 05:57 12/20/22 05:57 Labs: Laboratory Results - last 24 hr 12/20/22 12/21/22 11:51 05:23 Total Bilirubin 1.2 H Direct Bilirubin 0.3 AST 15 ALT 14 Alkaline Phosphatase 74 Total Protein 5.9 L Albumin 3.7 COVID-19 (LISA) Negative COVID-19 Clin Com See Note Procedures Date of Service Date of Service: 12/21/22 Progress Note: A&P Assessment and plan (1) Cholelithiasis: Status: Acute Assessment and Plan: she says her pain has almost resolved completely total bilirubin mildly elevated but direct bilirubin is still low unlikely to have CBD obstruction from gallstones will therefore proceed with cholecystectomy today she understands the technique of laparoscopic cholecystectomy as well as the risks, benefits, and alternatives. Her family is involved with the discussion. Time Spent With Patient Time: Total time managing care of this patient today ____ minutes. Quality Stroke Does the patient have a stroke diagnosis?: No VTE Prior VTE?: No VTE Risk Level:: Medical - moderate - high VTE Device Contraindication: N/A - Device Ordered VTE Drug Contraindication: N/A - Med Ordered
--- NOTE | 2022-12-21 13:33 | P.CONAN_ITS ---
HPI - Anesthesia Eval Consult details Narrative: 57 F for Lap elvira functional status greater than 4 mets PMFSH Active Problems Active Problems: All Active Problems (Updated 12/20/22 @ 10:12 by Sam Wiggins MD) Cholelithiasis (Acute) Biliary colic (Acute) Past Medical History Medical History section wound complications (~1988) No pertinent past medical history Functional capacity: independent ambulation Family History Family history of problems with anesthesia: No Surgical History History of Problems with Anesthesia: No Social History Social History Household Members: Spouse Housing: Apartment Do you presently have visiting nurse or other home services: No Alcohol intake: never Patient Tobacco Use Status: Never used Tobacco Use of substances other than those prescribed or required for medical reasons: No Currently Displaying Signs/Symptoms of Drug Intoxication Withdrawal: No Any prior treatment program specific to substance use: No Have you been hit, kicked, punched, or otherwise hurt by someone within the past year? If so, by whom?: No Do you feel safe in your current relationship?: Yes Is there a partner from a previous relationship who is making you feel unsafe now?: No Are you made to feel afraid or neglected: No Jehov[employer] Witness Healthcare Practices: n/a Are you DNR?: No Advance Directives: No Do you have thoughts of harming others: None Do you have a plan to hurt others: No Plan Recently lost weight without trying: No How much weight loss: Not applicable Eating poorly because of decreased appetite: No Nutrition screen score: 0 Nutrition Risks: No Nutritional Risk Patient : No : No Poor oral hygiene: No service: No Meds Allergies Allergy/AdvReac Type Severity Reaction Status Date / Time No Known Allergies Allergy Verified 12/20/22 05:45 [No Known Allergies*] Active Medications: Current Medications Lactated Ringer's (Lr) 1,000 mls @ 80 mls/hr IVCONT .[id number] [facility] Last Admin: 12/21/22 13:31 Dose: Not Given Morphine Sulfate (Morphine Sulfate 2 Mg/Ml Cartridge) 2 mg IM Q3H PRN; Protocol PRN Reason: Pain, Severe (Pain Scale 7-10) Ondansetron HCl (Ondansetron Hcl 4 Mg/2 Ml Vial) 4 mg IVPUSH Q6H PRN PRN Reason: nausea Oxycodone HCl (Oxycodone Hcl Immed Release 5 Mg Tablet) 5 mg PO Q4H PRN PRN Reason: Pain, Moderate (Pain Scale 4-6 Sodium Chloride (0.9 % Sodium Chloride Flush 3 Ml Syringe) 3 ml IVFLUSH QSHIFT TIMI Last Admin: 12/21/22 07:16 Dose: Not Given Exam Exam Date and Time: December 21, 2022 1333 Height,Weight and Vital Signs: Height 5 ft Weight 47.627 kg Last Vital Signs Temp 98.5 F 12/21/22 12:18 Pulse 89 12/21/22 12:18 Resp 15 12/21/22 12:18 BP 155/82 H 12/21/22 12:18 Pulse Ox 99 12/21/22 12:18 O2 Del Method Room Air 12/21/22 12:18 Pertinent Lab Results Pertinent Lab Results: Laboratory Tests 12/20/22 12/20/22 12/20/22 05:57 05:57 07:25 WBC 5.4 RBC 4.27 Hgb 13.3 Hct 39.6 MCV 92.7 MCH 31.1 MCHC 33.6 RDW 12.2 Plt Count 316 MPV 9.2 L Immature Gran % (Auto) 0.2 Neut % (Auto) 60.8 Lymph % (Auto) 28.5 [place] % (Auto) 9.2 Eos % (Auto) 0.9 Baso % (Auto) 0.4 Lymph # (Auto) 1.6 [place] # (Auto) 0.5 Eos # (Auto) 0.1 Baso # (Auto) 0.0 Abs Immat Gran (auto) 0.01 Absolute Neuts (auto) 3.3 Absolute Nucleated RBC 0.000 Nucleated RBC % (auto) 0.0 Sodium 142 Potassium 4.0 Chloride 108 Carbon Dioxide 26 Anion Gap 12 BUN 10 Creatinine 0.68 Estim Creat Clear Calc 65.5 Estimated GFR > 60 Random Glucose 101 Calcium 9.5 D Total Bilirubin 0.9 Direct Bilirubin 0.2 AST 18 ALT 20 Alkaline Phosphatase 92 Total Protein 7.1 Albumin 4.6 Lipase 21 Urine Color Yellow Urine Appearance Clear Urine pH 7.5 Ur Specific [place] 1.010 Urine Protein Negative Urine Glucose (UA) Negative Urine Ketones Negative Urine Blood Negative Urine Nitrite Negative Ur Leukocyte Esterase Negative COVID-19 (LISA) COVID-19 Clin Com 12/20/22 12/21/22 11:51 05:23 WBC RBC Hgb Hct MCV MCH MCHC RDW Plt Count MPV Immature Gran % (Auto) Neut % (Auto) Lymph % (Auto) [place] % (Auto) Eos % (Auto) Baso % (Auto) Lymph # (Auto) [place] # (Auto) Eos # (Auto) Baso # (Auto) Abs Immat Gran (auto) Absolute Neuts (auto) Absolute Nucleated RBC Nucleated RBC % (auto) Sodium Potassium Chloride Carbon Dioxide Anion Gap BUN Creatinine Estim Creat Clear Calc Estimated GFR Random Glucose Calcium Total Bilirubin 1.2 H Direct Bilirubin 0.3 AST 15 ALT 14 Alkaline Phosphatase 74 Total Protein 5.9 L Albumin 3.7 Lipase Urine Color Urine Appearance Urine pH Ur Specific [place] Urine Protein Urine Glucose (UA) Urine Ketones Urine Blood Urine Nitrite Ur Leukocyte Esterase COVID-19 (LISA) Negative COVID-19 Clin Com See Note Narrative Narrative: Date of Service: 12/14/22 Procedure(s): ECG 12 lead EKG Vent. Rate : 089 BPM ? ? Atrial Rate : 089 BPM ?? P-R Int : 130 ms? QRS Dur : 084 ms ? ? QT Int : 398 ms ? ? ? P-R-T Axes : 049 044 048 degrees ?? QTc Int : 484 ms ? Normal sinus rhythm Prolonged QT Abnormal ECG No previous ECGs available Airway Mallampati Class: III TM Dist: <=3cm Neck ROM: Full Denture: Upper and Lower Loose/Missing/Broken Teeth: Yes (metal screws ) Heart: S1,S2 Lungs: b/l breath sounds Assessment and Plan Assessment Anesthesia Assessment: Anesthesia Plan Discussed and Chart Reviewed Final Anesthetic Review Family History of Problems with Anesthesia: No History of Problems with Anesthesia: No NPO: Yes ASA Class: II Final Preanesthetic Review: Meds/Allgs Chart Reviewed, Consent Obtained/Reviewed and Anes Risks/Benef Reviewed Patient Risk: Intermediate Procedure Risk: Intermediate Anesthetic Plan Anesthetic Plan: GA and Agree w/ Assess. and Plan Disposition: Standard PACU and Inp. Admit - Standard Bed
--- NOTE | 2022-12-21 15:16 | W.PM.OPN ---
Operative Note Operative Note Date of Service: 12/21/22 Narrative: Preop diagnosis: Gallstones with pain Postop diagnosis: The same Procedure: Laparoscopic cholecystectomy Surgeon: Sascha Pope MD clerical administrative assistant: SAMINA Dominguez The patient is a 57 year female who was been in the emergency room twice the past week because of right upper quadrant pain with gallstones. I therefore admitted her yesterday as she wanted to proceed with cholecystectomy. She understood the technique of the planned procedure. She was aware of the risks, benefits, and alternatives. she was brought to the operating room and placed supine under general anesthesia via endotracheal tube. The abdomen was prepped and draped in the usual sterile fashion. A surgical time-out was done. The patient received Cefotan 2 g IV preoperatively. I made a short supraumbilical incision using a blade 15. This was carried down through the full-thickness of the skin subcutaneous fat. The fascia was incised. The peritoneum was entered. A Noemy port was introduced through this incision. Pneumo peritoneum was introduced to a pressure of 15 mm hg. From here on, the rest of the procedure was done under vision with the 10 mm laparoscope. With laparoscopic visualization a 5/12 middle port introduced a small incision the gastric area. Two 5 mm were introduced through small incisions in the subcostal on the right along the mid clavicular line and the anterior axillary line. Graspers were placed through these working ports. The patient was placed in head-up and [id number] position Gallbladder was seen. This was supple and did not appear to be inflamed but there were a lot of filmy adhesions surrounding this. A grasper was placed on the fundus to retract the gallbladder cephalad. Another grasper was placed toward the pouch to retract the gallbladder laterally. We cleared off adhesions using the [place] dissector. A lot as visualization the neck. There was note of a lot of fibrotic adhesions surrounding the neck. We had to do a lot of careful dissection of the neck using the [place] dissector and this part of the procedure took an extended period time. Eventually I was able to visualize the cystic duct. I was able to also clearly define the cystic artery. a critical view of the pannus cystic regular was therefore achieved.Clips were applied on the cystic duct with 2 clips applied distally. The cystic duct was transected between clips with Endo scissors. The cystic artery was also transected between clips with Endo scissors. With traction on the gallbladder away from the liver bed, proceeded to then divide through the hilum the electrocautery spatula. I reached the interface of the gallbladder wall and the liver bed. I defined the plane of dissection between this to and to separate the gallbladder along this well-defined plane. The gallbladder was using a combinatio of blunt dissection with the tip of the spatula and electrocautery. The gallbladder was completely and was retrieved through an endobag through the umbilical incision. I reinserted all ports and re-insufflated. I examined all 4 quadrants and there was no other pathology. There was no evidence of any bowel injury or any bile leak. There was note of good hemostasis on the area of dissection. Once hemostasis was confirmed, proceeded to then desufflate through the port sites. I removed all ports under vision with the laparoscope. The fascia of the umbilical incision was closed with [id number] Dexon 0 stitch. Skin closure was achieved on all incisions using Dexon 4-0 subcuticular running sutures. Charge and dressings were applied. All incisions were infiltrated with [place] 0.5% for postop analgesia. The procedure was then completed. The patient tolerated procedure well. There were no immediate complications. Initial and final counts of sponges and instruments were correct. Estimated blood loss about 25 cc The patient was extubated without difficulty and transferred to the recovery room with stable vital signs.
--- NOTE | 2022-12-21 16:16 | MHC.CM.PN ---
pt lives w is independent had no servceis has own ride home dc hickey home no servceis
[2022-12-21] MEDS: HYDROmorphone HCl 0.5 MG/0.5 ML SYRINGE IVPUSH (16:20)
[2022-12-21] MEDS: HYDROmorphone HCl 0.5 MG/0.5 ML SYRINGE 0.25 MG IVPUSH (16:47)
--- NOTE | 2022-12-21 16:48 | PM.EVENT ---
Event Note Date of Service: 12/21/22 Event Note: Seen postop She seems to have adequate pain control Stable vital signs Abdomen soft Continue pain management Clear liquids, advance as tolerated Hopefully she will be able to discharge tomorrow Her family Ena was updated by phone Time Spent With Patient Time: Total time managing care of this patient today ____ minutes.
[2022-12-21] MEDS: Morphine Sulfate 2 MG/ML CARTRIDGE IVPUSH ×2 (17:58→20:34)
[2022-12-22] MEDS: Morphine Sulfate 2 MG/ML CARTRIDGE IVPUSH (01:51)
[2022-12-22 03:37] VITALS: BP 118/66; PULSE 64; RESP 16; TEMP 36.4; O2SAT 99
[2022-12-22] MEDS: Lactated Ringers 1,000 ML 80 ML IVCONT (06:07)
[2022-12-22 07:43] VITALS: BP 135/63; PULSE 78; RESP 16; TEMP 36.6; O2SAT 98
[2022-12-22] MEDS: Acetaminophen 325 MG TABLET 650 MG PO (08:17)
[2022-12-22] MEDS: oxyCODONE HCl Immed Release 5 MG TABLET PO (08:18)
--- NOTE | 2022-12-22 08:38 | PM.PNGS ---
Subjective Subjective Date of Service: 12/22/22 Interval history: she says she has some incisional pain on coughing, /10 otherwise no events overnight tolerating diet ambulating now Physical Exam Vital Signs: Vital Signs: Last Vital Signs Temp 97.9 F 12/22/22 07:43 Pulse 78 12/22/22 07:43 Resp 16 12/22/22 07:43 BP 135/63 12/22/22 07:43 Pulse Ox 98 12/22/22 07:43 O2 Del Method Nasal Cannula 12/22/22 07:43 O2 Flow Rate 2 12/22/22 07:43 BMI result Body Mass Index 20.5 Const: General: comfortable and no acute distress Eyes: Other: anicteric sclerae Resp: Effort & Inspection: normal respiratory effort Cardio: Rate: regular rate GI: Other: dressings dry Palpation (GI): Soft to palpation, not firm, nontender and no guarding Objective Data Active Medications Acetaminophen (Acetaminophen 325 Mg Tablet) 650 mg PO Q6H PRN PRN Reason: fever, pain Last Admin: 12/22/22 08:17 Dose: 650 mg Documented By: JOYA Lactated Ringer's (Lr) 1,000 mls @ 80 mls/hr IVCONT .[id number] TIMI Last Admin: 12/22/22 06:07 Dose: 80 mls/hr Documented By: OLYA Morphine Sulfate (Morphine Sulfate 2 Mg/Ml Cartridge) 2 mg IVPUSH Q3H PRN; Protocol PRN Reason: Pain, Severe (Pain Scale 7-10) Last Admin: 12/22/22 01:51 Dose: 2 mg Documented By: OLYA Ondansetron HCl (Ondansetron Hcl 4 Mg/2 Ml Vial) 4 mg IVPUSH Q6H PRN PRN Reason: nausea Oxycodone HCl (Oxycodone Hcl Immed Release 5 Mg Tablet) 5 mg PO Q4H PRN PRN Reason: Pain, Moderate (Pain Scale 4-6 Last Admin: 12/22/22 08:18 Dose: 5 mg Documented By: JOYA Oxycodone HCl (Oxycodone Hcl Immed Release 5 Mg Tablet) 10 mg PO Q4H PRN PRN Reason: Pain, Severe (Pain Scale 7-10) Sodium Chloride (0.9 % Sodium Chloride Flush 3 Ml Syringe) 3 ml IVFLUSH QSHIFT TIMI Last Admin: 12/22/22 08:17 Dose: Not Given Documented By: JOYA Non-Admin Reason: IV Running Labs 12/20/22 05:57 12/20/22 05:57 Procedures Date of Service Date of Service: 12/22/22 Progress Note: A&P Assessment and plan (1) Cholelithiasis: Status: Acute Assessment and Plan: status post laparoscopic cholecystectomy doing well seems to have adequate pain control tolerating diet ambulating okay to DC home plan explained to patient and family at bedside - they are comfortable with plan DC instructions given Time Spent With Patient Time: Total time managing care of this patient today ____ minutes. Quality Stroke Does the patient have a stroke diagnosis?: No VTE Prior VTE?: No VTE Risk Level:: Medical - moderate - high VTE Device Contraindication: N/A - Device Ordered VTE Drug Contraindication: N/A - Med Ordered
--- NOTE | 2022-12-22 09:20 | MHC.CM.PN ---
Patient is discharged today home self care. Family transport home.
--- NOTE | 2022-12-22 09:34 | P.DS_ITS ---
DS: Providers Provider Date of Service: 12/22/22 Date of admission: 12/20/22 11:12 Date of discharge: 12/22/22 Primary care physician: Unknown Physician Attending physician on admission: Sascha Pope DS: Diagnosis Discharge Diagnosis (1) Cholelithiasis: Status: Acute DS: Summary Hospital Course Hospital Course: HPI AT ADMISSION: Grace Lopez is a 57 year old female with known gallstones, here in the ER because of her quadrant pain since last night. She was seen in the office last week because of gallstones as she had been in the ER the previous week for biliary colic. Because of her symptoms, she was scheduled to undergo cholecystectomy on January 03. She had an episode again last night described this as ?severe?. She currently feels better although this still have some mild pain?. She had some nausea without vomiting. ABD US was performed which showed gallstones without gallbladder wall thickening or pericholecystic fluid and a mildly dilated CBD duct however improved from previous imaging. LFTs were normal. HOSPITAL COURSE: The patient had persistent severe pain and wanted to be admitted and undergo cholecystectomy for symptomatic gallstones during this admission. She was therefore admitted to the surgical service for further treatment of her symptomatic gallstones. She was added onto the OR schedule for the following day. LFTs were repeated the following day to make sure that her pa in episode is not secondary to CBD stones, which showed mild elevated total bili but AST/ALT/alk phos were WNL. She also felt improved. On 12/21/22, a laparoscopic cholecystectomy was performed by Dr. Pope without complication. She tolerated the procedure well. She had an uncomplicated recovery course. On POD #1, she felt overall well and improved with good pain control. She was tolerating a solid diet. She was ambulating without difficulty. Her vitals were stable and her abdomen was benign with appropriate post op tenderness and clean dressings. She felt ready for discharge. She was discharged to home on 12/22/22 in stable condition. She is to follow up in the office in 2 weeks. Status at Discharge Functional status at discharge: independent ambulation Overall status at discharge: patient is progressing back to baseline Time Spent with Patient Time attestation: Total time managing care of this patient today ____ minutes. Discharge coordination time: Less than 30 minutes Quality: Safe Use of Opioids Does Pt have an Active Cancer Diagnosis on the Problem List?: No Quality: Stroke Does the patient have a stroke diagnosis?: No Physical Exam Vital Signs: Vital Signs: Last Vital Signs Temp 97.9 F 12/22/22 07:43 Pulse 78 12/22/22 07:43 Resp 16 12/22/22 07:43 BP 135/63 12/22/22 07:43 Pulse Ox 98 12/22/22 07:43 O2 Del Method Nasal Cannula 12/22/22 07:43 O2 Flow Rate 2 12/22/22 07:43 BMI result Body Mass Index 20.5 Const: General: comfortable, no acute distress and alert Orientation/consciousness: patient oriented x3 Resp: Effort & Inspection: normal respiratory effort GI: Inspection: No distended and Yes incision (dressings c/d/i) Palpation (GI): Soft to palpation, Tenderness to palpation present (GI) (mild, incisional), no guarding and not rigid Skin: General skin exam: no rashes or lesions noted and no jaundice Neuro: General: patient oriented x3 DS: Data Data Completed and Pending Pending studies at discharge: Pending at discharge 12/21/22 14:48 Surgical [PTH] Routine Discharge Plan Discharge Anticipated Discharge Date/Time: 12/22/22 08:41 Patient Disposition: Home, Self-Care Discharge Diagnosis: gallstones with pain Referrals: Sascha Pope MD [Physician] - 2 Weeks Jayne Reyes MD [Physician] - 05/09/23 9:00 am (New patient appointment is scheduled. Call office if you need to reschedule ) Discharge Medications: New oxycodone-acetaminophen [Percocet] 5-325 mg tablet 1 tab PO Q4-6H PRN (Reason: pain) Qty: 30 0RF Rx Instructions: Partial Fill upon patient request. docusate sodium [Colace] 100 mg capsule 100 mg PO BID Qty: 60 2RF ibuprofen 600 mg tablet 600 mg PO Q6H PRN (Reason: pain) Qty: 30 0RF Discontinued tramadol 50 mg tablet 50 mg PO Q6H PRN (Reason: pain) Qty: 20 0RF Discharge Orders: Discharge Order (Routine); Ordered 12/22/22 Ordered By: Sascha Pope Activity on Discharge: No heavy lifting Stand Alone Forms: Patient Portal Discharge page Activity Restrictions/Additional Instructions: If the incision area is tender, you may apply an ice pack for short intervals (No more than 20 minutes on, followed by at least 20 minutes off). Do not apply heat. Do not use creams, lotions, or topical antibiotics unless instructed to do so by your surgeon. These can cause infection or allergic reaction. No lifting more than 20 lbs Okay to shower starting December 23, 2022 Okay to change dressings with gauze or Band-Aid No strenuous activities Call the office for follow-up in 2 weeks - with Dr. Pope Call Your Doctor If: -Your temperature exceeds 101.5? F -You experience excessive pain or swelling -You have an unexpected reaction to medication -You have excessive bleeding -You experience continued vomiting/nausea -Your incision begins to separate -Your incision shows signs of infection such as increased redness, swelling, excessive pain, drainage (light blood or clear fluid is normal) or heat Care Plan Goals: control pain Health Concerns: pain control postop Plan of Treatment: oral pain meds no lifting Assessment: doing well postop
--- NOTE | 2022-12-22 14:10 | HO.POSTANES ---
Post Anesthesia Evaluation Post Anesthesia Evaluation Vital Signs: Vital Signs Temp Pulse Resp BP Pulse Ox O2 Del Method O2 Flow Rate 12/22/22 07:43 97.9 F 78 16 135/63 98 Nasal Cannula 2 12/22/22 03:37 97.5 F 64 16 118/66 99 Nasal Cannula 2 Anesthesia: General Endotracheal-GETA Mental Status: Awake Pain Control: Satisfactory Nausea/Vomiting: None Hydration: Adequate Anesthesia-Related Issues: No Anes. Related Issues
== END 2022-12-22 11:10 | disposition home or self-care (01) | DRG 263 ==
LOC: HO.ED 12:16 → HO.EDOVER 12:27 → HO.S3 16:33
PROVIDERS: Physician Assistant Surgical; Admitting Provider Surgery; Emergency Provider Emergency Medicine; Visit Provider Surgery
PROC: 0FT44ZZ Resection of Gallbladder, Percutaneous Endoscopic Approach (ICD-10-PCS; CPT 47562; principal; 2022-12-21 13:10)
DX: K80.20 Calculus of gallbladder without cholecystitis without obstruction (principal); Z20.822 Contact with and (suspected) exposure to COVID-19
CPT/HCPCS: 47562; 36415; 76705; 80048; 80076; 81003; 83690; 85025; 87635; 88304; 99285; J1100; J1170; J1885; J2250; J2270; J2405; J2543; J2795; J3010

== ENCOUNTER → 2023-01-04 09:38 | Outpatient (BNVA) | payer OTHER, SELFPAY | PROVIDERS: PCP Nurse Practitioner Family; Visit Provider Surgery | DX: Z13.89 Encounter for screening for other disorder (principal) ==

== ENCOUNTER 2023-01-14 06:58 | Outpatient (REF) | payer OTHER, SELFPAY ==
[2023-01-14 07:09] LABS: MANUAL DIFF FLAG NO
[2023-01-14 07:44] LABS: Basophils Percent Auto 0.7 % (0-2); Eosinophils Absolute Auto 0.1 X10*3/uL (0.0-0.4); Eosinophils Percent Auto 1.8 % (0-4); Hemoglobin 12.9 g/dl (12.0-16.0); Imm Gran Abs Auto 0.01 X10*3/uL (0.00-0.03); Imm Gran Pct Auto 0.2 % (0.0-0.4); Lymphocytes Percent Auto 35.4 % (20-40); Mean Corpuscular HGB Conc 33.9 g/dl (31.0-35.0); Mean Corpuscular Hemoglobin 31.6 pg (27.0-33.0); Mean Corpuscular Volume 93.1 fL (80.0-98.0); Mean Platelet Volume 9.5 fL (9.4-12.3); Monocytes Absolute Auto 0.5 X10*3/uL (0.1-1.2); Monocytes Percent Auto 9.7 % (2-11); Neutrophils Absolute Auto 2.9 x10*3/uL (2.0-8.3); Neutrophils Percent Auto 52.2 % (45-73); Platelet Count 330 X10*3/uL (160-400); Red Blood Count 4.08 X10*6/uL (4.20-5.50); Red Cell Distribution Width 12.4 % (11.0-16.0); White Blood Count 5.5 X10*3/uL (4.8-10.8)
[2023-01-14 08:12] LABS: Alanine Aminotransferase 13 U/L (0-31); Albumin Level 4.4 g/dL (3.5-5.0); Alkaline Phosphatase 98 U/L (39-117); Anion Gap 12 (12-20); Aspartate Amino Transferase 17 U/L (5-31); Bilirubin Total 0.6 mg/dL (0.0-1.0); Blood Urea Nitrogen 12 mg/dL (9-16); Calcium 9.4 mg/dL (8.4-10.2); Carbon Dioxide 28 mmol/L (22-29); Chloride 106 mmol/L (96-108); Cholesterol 277 mg/dL; Estimated Glomerular Filt Rate > 60; Glucose Random 91 mg/dL (60-115); HDL Cholesterol 52 mg/dL; LDL Cholesterol Calculated 196 mg/dl; Potassium 4.7 mmol/L (3.3-5.1); Sodium 141 mmol/L (135-145); Total Protein 6.7 g/dL (6.5-8.0); Triglycerides 148 mg/dL
[2023-01-14 08:31] LABS: TSH reflex Free T4 1.89 uIU/mL (0.32-4.0); Vitamin D 25-OH Total 17.7 ng/mL (>30)
== END 2023-01-14 06:59 | disposition home or self-care (01) ==
LOC: HO.LAB 06:58
PROVIDERS: PCP Nurse Practitioner Family; Visit Provider Nurse Practitioner Family
DX: Z13.21 Encounter for screening for nutritional disorder (principal); Z13.29 Encounter for screening for other suspected endocrine disorder; Z13.220 Encounter for screening for lipoid disorders; Z83.3 Family history of diabetes mellitus; Z13.0 Encounter for screening for diseases of the blood and blood-forming organs and certain disorders involving the immune mechanism; Z20.2 Contact with and (suspected) exposure to infections with a predominantly sexual mode of transmission; E55.9 Vitamin D deficiency, unspecified
CPT/HCPCS: 36415; 80053; 80061; 82306; 84443; 85025

== ENCOUNTER 2023-11-28 17:24 | Emergency (ER) | payer OTHER, SELFPAY ==
--- NOTE | ~2023-11-28 | CT_ITS ---
EXAMINATION: CT ABDOMEN AND PELVIS WITHOUT CONTRAST CLINICAL INFORMATION: Right-sided flank pain COMPARISON: Ultrasound abdomen 12/20/2022 TECHNIQUE: Multidetector volumetric imaging was performed from the superior aspect of the liver through the pubic symphysis. Sagittal and coronal reformatted images were obtained on the technologist's workstation. This CT examination was performed using dose optimization techniques as appropriate, variously including the following: *Automated exposure control *Adjustment of mA and/or kV according to patient size (this includes techniques or standardized protocols for targeted exams where dose is matched to indication/reason for exam; i.e. extremities or head) *Use of iterative reconstruction technique DLP: 329 mGy-cm FINDINGS: LUNG BASES: The visualized lung bases are unremarkable. LIVER, GALLBLADDER, AND BILIARY TREE: The liver is normal in size, shape, and attenuation. No focal hepatic lesion. Status post cholecystectomy. The common bile duct is dilated at 1 cm which may be normal after cholecystectomy. PANCREAS: Unremarkable. SPLEEN: Unremarkable. ADRENAL GLANDS: Unremarkable. KIDNEYS AND URETERS: On the right, there is a nonobstructing mid to proximal ureteral calculus present with associated dilatation of the ureter and pelvocaliectasis. A tiny 3 mm calculus is present at the lower pole on the right. No right renal masses are seen. The left kidney appears normal. BLADDER: Empty but unremarkable GASTROINTESTINAL TRACT: The small and large bowel are unremarkable. The appendix is unremarkable. ABDOMINAL WALL: No significant hernia is appreciated. LYMPH NODES: No retroperitoneal lymphadenopathy VASCULAR: Unremarkable. PELVIC VISCERA: The uterus and adnexa are unremarkable. OSSEOUS STRUCTURES: Unremarkable. CT/CT abdomen pelvis wo IV con IMPRESSION: 1. Obstructing mid to proximal right ureteral calculus with associated pelvocaliectasis. 2. Other incidental findings as described above. Fleischner guidelines were followed.
[2023-11-28 17:36] VITALS: BP 118/63; PULSE 85; RESP 18; TEMP 37.2; O2SAT 100; BMI 25.3
--- NOTE | 2023-11-28 17:38 | ED_ITS ---
HPI - General Adult General Chief complaint: Abdominal Pain Stated complaint: lwr right side pain Time Seen by Provider: 11/28/23 21:55 Source: patient and family Mode of arrival: ambulatory Limitations: no limitations History of Present Illness HPI narrative: Patient is status post cholecystectomy in 12/15 no history of kidney stone in the past comes here for acute sharp in the right flank area radiating to the right lower abdomen started at 13:30. Associated with nausea no fever no chills no urinary symptoms patient never had similar pain in the past Related Data Previous Rx's Medication Instructions Recorded docusate sodium 100 mg capsule 100 mg PO BID #60 caps 12/22/22 (Colace) ibuprofen 600 mg tablet 600 mg PO Q6H PRN pain #30 tabs 12/22/22 cholecalciferol (vitamin D3) 50 50 mcg PO DAILY #30 caps 01/16/23 mcg (2,000 unit) capsule oxycodone 5 mg tablet 5 mg PO Q6H PRN pain #20 tabs 11/29/23 tamsulosin 0.4 mg capsule (Flomax) 0.4 mg PO BEDTIME #10 caps 11/29/23 Allergies Allergy/AdvReac Type Severity Reaction Status Date / Time No Known Allergies Allergy Verified 11/28/23 17:38 [No Known Allergies*] Review of Systems 2 Review of Systems: Yes all other systems are reviewed and are negative [facility] Past Medical History Medical History section wound complications (~1988) No pertinent past medical history Surgical History Status post laparoscopic cholecystectomy Family History Family History Mother Stomach cancer Father Renal cell cancer HTN (hypertension) Diabetes Brother Liver cancer HTN (hypertension) Diabetes Social History Social History Household Members: Spouse Housing: Apartment Do you presently have visiting nurse or other home services: No Alcohol intake: never Patient Tobacco Use Status: Never used Tobacco e-Cigarette/Vaping Use: Never Used Advance Directives: No Advance Directives Information Provided: No service: No Physical Exam ED Vital Signs: Vital Signs - 24 hr 11/28/23 17:36 11/28/23 22:02 11/28/23 23:38 Temperature 98.9 F 98.4 F 98.3 F Pulse Rate 85 90 80 Respiratory Rate 18 17 16 Blood Pressure 118/63 136/72 102/52 L Pulse Oximetry 100 98 97 Oxygen Delivery Method Room Air Room Air Room Air BMI result Body Mass Index 25.3 Appearance: Alert. Oriented X3. No acute distress. Eyes: No pallor ENT: Pharynx normal. Oral Mucosa moist Neck: Normal inspection. Neck supple. CVS: Normal heart rate and rhythm. Pulses normal. Respiratory: No respiratory distress. Equal air entry bilateral, Abdomen: Soft and nontender. Bowel sounds are present, no mass palpable,R CVA tenderness Skin: Skin warm and dry. Normal skin color. Normal skin turgor. Extremities: No lower extremity edema. No calf tenderness Neuro: Oriented X 3. Course Course Course Narrative: RME- 57 female presents for evaluation of right lower abdominal pain started today. Pain has been severe. She reports nausea without vomiting. She is status post cholecystectomy about a year ago. Plan for labs, UA, CT abdomen pelvis Medications Administered Discontinued Medications Generic Name Dose Route Start Last Admin Trade Name Freq PRN Reason Stop Dose Admin Acetaminophen 975 mg 11/28/23 19:32 11/28/23 20:47 Acetaminophen 325 Mg Tablet PO 11/28/23 19:33 975 mg ONCE ONE Administration Sodium Chloride 1,000 mls @ 999 mls/hr 11/28/23 22:03 11/28/23 23:08 Ns IV 11/28/23 23:03 Infused .Q1H1M ONE Infusion Ketorolac Tromethamine 30 mg 11/28/23 22:03 11/28/23 22:11 Ketorolac Tromethamine 30 Mg/Ml Vial IVPUSH 11/28/23 22:04 30 mg ONCE ONE Administration Morphine Sulfate 4 mg 11/28/23 22:03 11/28/23 22:11 Morphine Sulfate 4 Mg/Ml Cartridge IVPUSH 11/28/23 22:04 4 mg ONCE ONE Administration Protocol Ondansetron HCl 4 mg 11/28/23 22:03 11/28/23 22:11 Ondansetron Hcl 4 Mg/2 Ml Vial IVPUSH 11/28/23 22:04 4 mg ONCE ONE Administration Tamsulosin HCl 0.4 mg 11/28/23 22:03 11/28/23 22:11 Tamsulosin Hcl 0.4 Mg Capsule PO 11/28/23 22:04 0.4 mg ONCE ONE Administration Medical Decision Making Medical Decision Making [facility] Narrative: Patient with 4.5 mm proximal right ureteral stone with mild hydro pain relieved after IV morphine patient is pain-free now advised to follow with urologist Differential Diagnosis Differential Diagnoses: The differential diagnosis associated with the presentation includes Renal colic pancreatitis biliary colic Lab Data [facility] Lab Attestation statement: I reviewed the patient's lab results. 11/28/23 18:53 11/28/23 18:53 Labs: Lab Results 11/28/23 11/28/23 Range/Units 18:53 23:43 WBC 12.8 H (4.8-10.8) X10*3/uL RBC 3.83 L (4.20-5.50) X10*6/uL Hgb 12.2 (12.0-16.0) g/dl Hct 34.9 L (37.0-47.0) % MCV 91.1 (80.0-98.0) fL MCH 31.9 (27.0-33.0) pg MCHC 35.0 (31.0-35.0) g/dl RDW 12.0 (11.0-16.0) % Plt Count 299 (160-400) X10*3/uL MPV 9.2 L (9.4-12.3) fL Immature Gran % (Auto) 0.3 (0.0-0.4) % Neut % (Auto) 86.6 H (45-73) % Lymph % (Auto) 8.4 L (20-40) % [place] % (Auto) 3.4 (2-11) % Eos % (Auto) 1.1 (0-4) % Baso % (Auto) 0.2 (0-2) % Lymph # (Auto) 1.1 L (1.2-4.9) X10*3/uL [place] # (Auto) 0.4 (0.1-1.2) X10*3/uL Eos # (Auto) 0.1 (0.0-0.4) X10*3/uL Baso # (Auto) 0.0 (0.0-0.2) X10*3/uL Abs Immat Gran (auto) 0.04 H (0.00-0.03) X10*3/uL Absolute Neuts (auto) 11.0 H (2.0-8.3) x10*3/uL Absolute Nucleated RBC 0.000 (0.0-0.012) X10*3/uL Nucleated RBC % (auto) 0.0 (0.0-0.2) /100WBC Sodium 141 (135-145) mmol/L Potassium 3.7 (3.3-5.1) mmol/L Chloride 108 (96-108) mmol/L Carbon Dioxide 25 (22-29) mmol/L Anion Gap 12 (12-20) BUN 10 (9-16) mg/dL Creatinine 0.91 (0.5-1.4) mg/dL Estim Creat Clear Calc 32.0 Estimated GFR > 60 Random Glucose 135 H (60-115) mg/dL Calcium 9.7 (8.4-10.2) mg/dL Total Bilirubin 0.7 (0.0-1.0) mg/dL AST 16 (5-31) U/L ALT 10 (0-31) U/L Alkaline Phosphatase 89 (39-117) U/L Total Protein 7.3 (6.5-8.0) g/dL Albumin 4.5 (3.5-5.0) g/dL Lipase 18 (8-78) U/L Urine Color Yellow Urine Appearance Cloudy Urine pH 8.5 (5.0-9.0) Ur Specific [place] 1.015 (1.005-1.025) Urine Protein Negative (Neg-Trace) mg/dL Urine Glucose (UA) Negative (Negative) mg/dL Urine Ketones 40 (Negative) mg/dL Urine Blood Large (3+) H (Negative) Urine Nitrite Negative (Negative) Ur Leukocyte Esterase Trace H (Negative) Urine RBC >20 H (0-2) /HPF Urine WBC 0-5 (0-5) /HPF Ur Squamous Epith Cells 0-2 (0-2) /HPF Urine Bacteria None Seen (None Seen) Hyaline Casts 0-2 (0-2) /LPF Independent Interpretation I performed an independent interpretation of an: CT Scan Interpretation: 4 mm proximal right ureteral stone with obstructive uropathy Radiology Impression Discussion of test interpretation with radiology: I have reviewed the radiologist's reading. Discharge Plan Discharge Clinical Impression: Calculus of proximal right ureter Patient Disposition: Home, Self-Care Instructions: Ureteral Stones (ED) Additional Instructions: Drink plenty of fluids Your stone in right kidney tube which likely going to pass Take pain medication and Flomax to help in passing the stone Report to the ER if pain gets worse Follow-up with urologist Reji cross?quido Phelps c?lculo en el tubo renal derecho que probablemente pasar? [place] analg?sicos y Flomax para ayudar a expulsar el c?lculo. Informe a urgencias si el dolor empeora Seguimiento con ur?logo. Prescriptions: New oxycodone 5 mg tablet 5 mg PO Q6H PRN (Reason: pain) Qty: 20 0RF Rx Instructions: Partial Fill upon patient request. tamsulosin [Flomax] 0.4 mg capsule 0.4 mg PO BEDTIME Qty: 10 0RF No Action cholecalciferol (vitamin D3) 50 mcg (2,000 unit) capsule 50 mcg PO DAILY Qty: 30 3RF docusate sodium [Colace] 100 mg capsule 100 mg PO BID Qty: 60 2RF ibuprofen 600 mg tablet 600 mg PO Q6H PRN (Reason: pain) Qty: 30 0RF Referrals: Andrew Albert MD [Physician] - 1 week Stand Alone Forms: Work/School Release Interventions: ED Discharge Assessment Last Done: 11/29/23 01:09 Discharge Date/Time: 11/29/23 01:10 Print Language: Tuvaluan
[2023-11-28 19:00] LABS: Basophils Percent Auto 0.2 % (0-2); Eosinophils Absolute Auto 0.1 X10*3/uL (0.0-0.4); Eosinophils Percent Auto 1.1 % (0-4); Hematocrit 34.9 % (37.0-47.0); Hemoglobin 12.2 g/dl (12.0-16.0); Imm Gran Abs Auto 0.04 X10*3/uL (0.00-0.03); Imm Gran Pct Auto 0.3 % (0.0-0.4); Lymphocytes Absolute Auto 1.1 X10*3/uL (1.2-4.9); Lymphocytes Percent Auto 8.4 % (20-40); MANUAL DIFF FLAG NO; Mean Corpuscular Hemoglobin 31.9 pg (27.0-33.0); Mean Corpuscular Volume 91.1 fL (80.0-98.0); Mean Platelet Volume 9.2 fL (9.4-12.3); Monocytes Absolute Auto 0.4 X10*3/uL (0.1-1.2); Monocytes Percent Auto 3.4 % (2-11); Neutrophils Percent Auto 86.6 % (45-73); Platelet Count 299 X10*3/uL (160-400); Red Blood Count 3.83 X10*6/uL (4.20-5.50); WBC ABN SCTR 1
[2023-11-28 19:06] LABS: WBC ABN SCTR FOR CBC 1
[2023-11-28 19:17] LABS: Alanine Aminotransferase 10 U/L (0-31); Albumin Level 4.5 g/dL (3.5-5.0); Alkaline Phosphatase 89 U/L (39-117); Anion Gap 12 (12-20); Aspartate Amino Transferase 16 U/L (5-31); Bilirubin Total 0.7 mg/dL (0.0-1.0); Blood Urea Nitrogen 10 mg/dL (9-16); Calcium 9.7 mg/dL (8.4-10.2); Carbon Dioxide 25 mmol/L (22-29); Chloride 108 mmol/L (96-108); Estimated Glomerular Filt Rate > 60; Glucose Random 135 mg/dL (60-115); Lipase 18 U/L (8-78); Potassium 3.7 mmol/L (3.3-5.1); Sodium 141 mmol/L (135-145); Total Protein 7.3 g/dL (6.5-8.0)
[2023-11-28 19:27] LABS: White Blood Count 12.8 X10*3/uL (4.8-10.8)
[2023-11-28] MEDS: Acetaminophen 325 MG TABLET 975 MG PO (20:47)
[2023-11-28 22:02] VITALS: BP 136/72; PULSE 90; RESP 17; TEMP 36.9; O2SAT 98
[2023-11-28] MEDS: 0.9 % Sodium Chloride 1,000 ML 999 ML IV (22:10)
[2023-11-28] MEDS: Tamsulosin HCL 0.4 MG CAPSULE PO (22:11)
[2023-11-28] MEDS: ondansetron HCL 4 MG/2 ML VIAL IVPUSH (22:11)
[2023-11-28] MEDS: Ketorolac Tromethamine 30 MG/ML VIAL IVPUSH (22:11)
[2023-11-28] MEDS: Morphine Sulfate 4 MG/ML CARTRIDGE IVPUSH (22:11)
[2023-11-28 23:38] VITALS: BP 102/52; PULSE 80; RESP 16; TEMP 36.8; O2SAT 97
[2023-11-28 23:49] LABS: Appearance Urine Cloudy; Color Urine Yellow; Glucose Urine UA Negative (Negative); Leukocyte Esterase Urine Trace (Negative); Nitrite Urine Negative (Negative); PH 8.5 (5.0-9.0); Specific Gravity - Urine 1.015 (1.005-1.025); UMIC TRIGGER UACC YES; Urine Blood Large (3+) (Negative); Urine Ketones 40 mg/dL (Negative); Urine Protein Negative (Neg-Trace)
[2023-11-28 23:52] LABS: Bacteria Urine None Seen (None Seen); Hyaline Casts Urine 0-2 /LPF (0-2); RBC Urine >20 /HPF (0-2); Squamous Epithelial Cell Urine 0-2 /HPF (0-2); WBC Urine 0-5 /HPF (0-5)
--- NOTE | 2023-11-28 23:55 | MHC.EDTECH ---
Patient midnight vitals taken ,and urine sample collected and sent to lab ,Patient family member at bedside .
== END 2023-11-29 01:10 | disposition home or self-care (01) ==
PROVIDERS: Physician Assistant; Emergency Provider Internal Medicine; PCP Nurse Practitioner Family
DX: N20.1 Calculus of ureter (principal); R11.0 Nausea; Z79.899 Other long term (current) drug therapy
CPT/HCPCS: 36415; 74176; 80053; 81001; 83690; 85025; 96361; 96374; 96375; 99284; J1885; J2270; J2405

== ENCOUNTER 2023-12-27 11:00 | Outpatient (AMB) | payer OTHER, SELFPAY ==
--- NOTE | 2023-12-27 10:59 | A.OFFVIS_ITS ---
Intake Intake Visit Reasons: 4 weeks for ureteral stone Intake Note: New Patient presents for initial visit for ureteral stone Urology Medications: none Blood Thinner: none Access Assoc Required: Yes Accompanied by: Unknown Allergies No Known Allergies [No Known Allergies*] Allergy (Verified 12/27/23 11:28) Medication List - Last Reconciled 12/27/23 by BRANDON Brewer ibuprofen 600 mg PO Q6H PRN oxycodone 5 mg PO Q6H PRN tamsulosin 0.4 mg PO BEDTIME 30 days HPI HPI Comments History of Present Illness Details The Kiera is a pleasant 58-year-old Sinhala-speaking female patient of Dr. Paredes who was accompanied by her friend at today's office visit. She presents to the office today as a new patient for nephrolithiasis. In discussion with the patient today she reports having seeked emergency room care services approximately 1 month ago at which time she had been experiencing right-sided flank pain that radiated to her abdominal area at which time a CT of the abdomen was ordered and performed. These results were reviewed with the patient today. On the right there is a nonobstructing mid to proximal ureteral calculus present with associated dilatation of the ureter and pelvocaliectasis. A tiny 3 mm calculus is present at the lower pole on the right. No right renal masses are seen. The left kidney appears normal. The bladder is empty but unremarkable. When asked patient does report intermittent but infrequent episodes of right- sided flank area of fullness. She reports pain she had been experiencing has since subsided however continues with pulsation like fullness to her right flank area. She otherwise denies any bothersome urinary issues or concerns. She denies urinary urgency, urinary frequency, incontinence, nocturia, hematuria, dysuria, foul smelling urine, changes to urinary stream, flank pain, fever, and or chills. She is happy with her current voiding parameters. When asked she denies any previous history of nephrolithiasis and or surgical intervention for nephrolithiasis. Right-sided CVA tenderness noted on exam. She otherwise offers no other issues or concerns at this time. [facility] Medical History section wound complications (~1988) No pertinent past medical history Surgical History Status post laparoscopic cholecystectomy Family History Mother Stomach cancer Father Renal cell cancer HTN (hypertension) Diabetes Brother Liver cancer HTN (hypertension) Diabetes Social History Household Members: Spouse Housing: Apartment Do you presently have visiting nurse or other home services: No Alcohol intake: never Patient Tobacco Use Status: Never used Tobacco e-Cigarette/Vaping Use: Never Used service: No Review of Systems Const All systems reviewed & are unremarkable except as noted in HPI and below Physical Exam Const General: cooperative, comfortable, no acute distress, well developed, alert and awake Orientation/consciousness: patient oriented x3 HEENT Head: Yes normal to inspection, Yes normocephalic and Yes atraumatic Ears: hearing grossly normal bilaterally Eyes General: appearance normal, both eyes and all related structures Neck Neck: Yes normal visual inspection and Yes trachea midline Chest Chest palpation & inspection: normal inspection of the chest Resp Effort & Inspection: normal respiratory effort and able to speak in complete sentences Cardio Rate: regular rate GI Inspection: Yes normal to inspection General: Yes CVA tenderness (right side) Back/Spine/Pelvis Back: CVA tenderness (right side) Skin General skin exam: no rashes or lesions noted Neuro General: patient oriented x3 Extrem General: Yes normal to inspection Psych Appearance: grossly normal and well kempt Mental Status: mental status grossly normal Speech and movement: Normal speech and movement present and Clear speech present Affect: normal affect Attitude: cooperative Thought process: Normal thought process present Thought content: Normal thought content present Results AMB Urinalysis, Automated UA Leukoctes 0 Sarath/uL Last Edit by Damian Zimmer on 12/27/23 11:17 UA Nitrite Negative Last Edit by Damian Zimmer on 12/27/23 11:17 UA Urobilinogen 0.2 mg/dL Last Edit by Damian Zimmer on 12/27/23 11:17 UA Protein 0 mg/dL Last Edit by Damian Zimmer on 12/27/23 11:17 UA pH 5.5 Last Edit by Damian Zimmer on 12/27/23 11:17 UA Blood 200 True/uL Last Edit by Damian Zimmer on 12/27/23 11:17 UA Specific [place] 1.020 Last Edit by Damian Zimmer on 12/27/23 11:17 UA Ketone Negative Last Edit by Damian Zimmer on 12/27/23 11:17 UA Bilirubin 0 mg/dL Last Edit by Damian Zimmer on 12/27/23 11:17 UA Glucose 0 mg/dL Last Edit by Damian Zimmer on 12/27/23 11:17 Results Reviewed Results Reviewed: Laboratory Last Values Urine pH (Auto) 5.5 12/27/23 11:01 Specific [place] (Auto) 1.020 12/27/23 11:01 Urine Protein (Auto) 0 mg/dL 12/27/23 11:01 Glucose (UA)(Auto) 0 mg/dL 12/27/23 11:01 Urine Ketones (Auto) Negative 12/27/23 11:01 Urine Blood (Auto) 200 True/uL 12/27/23 11:01 Urine Nitrite (Auto) Negative 12/27/23 11:01 Urine Bilirubin (Auto) 0 mg/dL 12/27/23 11:01 Urine Urobilinogen (Auto) 0.2 mg/dL 12/27/23 11:01 Leukocyte Esterase (Auto) 0 Sarath/uL 12/27/23 11:01 Date of Service: 11/28/23 EXAMINATION: CT ABDOMEN AND PELVIS WITHOUT CONTRAST FINDINGS: LUNG BASES: The visualized lung bases are unremarkable. LIVER, GALLBLADDER, AND BILIARY TREE: The liver is normal in size, shape, and attenuation. No focal hepatic lesion. Status post cholecystectomy. The common bile duct is dilated at 1 cm which may be normal after cholecystectomy. PANCREAS: Unremarkable. SPLEEN: Unremarkable. ADRENAL GLANDS: Unremarkable. KIDNEYS AND URETERS: On the right, there is a nonobstructing mid to proximal ureteral calculus present with associated dilatation of the ureter and pelvocaliectasis. A tiny 3 mm calculus is present at the lower pole on the right. No right renal masses are seen. The left kidney appears normal. BLADDER: Empty but unremarkable GASTROINTESTINAL TRACT: The small and large bowel are unremarkable. The appendix is unremarkable. ABDOMINAL WALL: No significant hernia is appreciated. LYMPH NODES: No retroperitoneal lymphadenopathy VASCULAR: Unremarkable. PELVIC VISCERA: The uterus and adnexa are unremarkable. OSSEOUS STRUCTURES: Unremarkable. CT/CT abdomen pelvis wo IV con IMPRESSION: 1. Obstructing mid to proximal right ureteral calculus with associated pelvocaliectasis. 2. Other incidental findings as described above. Assessment & Plan Assessment & Plan (1) Hydronephrosis with renal and ureteral calculus obstruction: Code(s): N13.2 - Hydronephrosis with renal and ureteral calculous obstruction (2) Nephrolithiasis: Code(s): N20.0 - Calculus of kidney Plan In office urinalysis results reviewed with the patient today; as noted above. Discussed obtaining urgent retroperitoneal ultrasound for further assessment evaluation. Discussed potential for near future surgical intervention for obstructing nephrolithiasis; this was discussed at length; risks and benefits were also discussed. Start Flomax as discussed and prescribed. Discussed, educated, and stressed the importance of drinking plenty of water daily. Follow-up in 1-2 weeks with imaging to be completed prior; or sooner with any issues, concerns, and or questions. Orders: Orders AMB Urinalysis Automated Today Z13.9 - Encounter for screening, unspecified US retroperitoneal comp Today N13.2 - Hydronephrosis with renal and ureteral calculous obstruction, N20.0 - Calculus of kidney Medications: New tamsulosin 0.4 mg PO BEDTIME 30 caps 1RF 30 days N40.1 - Benign prostatic hyperplasia with lower urinary tract symptoms, R35.1 - Nocturia Patient Instructions: The patient had an opportunity to ask questions regarding the treatment plan. All questions were answered. Physical exam, labs, and imaging were discussed and reviewed in detail. As well as risks, benefits, and discussion of treatment choices. No major barriers to understanding were identified. The patient expressed understanding and agreement with the above treatment plan. The patient was made aware they should contact our office by phone for worsening of their current condition, the appearance of new symptoms, or with any questions or concerns. Compliance is encouraged with any medications and follow up testing that is ordered. It is a privilege to be allowed the opportunity to participate in? your urological care.? Again, if you have any questions or concerns If you have any questions or concerns please do not hesitate to contact me. The office is [phone]. This note is constructed using voice recognition software. While every effort has been made to ensure accuracy child and family counselor errors may have been included. Yours sincerely, BRANDON Brewer Coding Level of Care Code New Pt Level 4 (84560) Diagnoses Hydronephrosis with renal and ureteral calculus obstruction N13.2 Nephrolithiasis N20.0
== END 2023-12-27 11:29 | disposition home or self-care (01) ==
PROVIDERS: PCP Nurse Practitioner Family; Visit Provider Nurse Practitioner Family
DX: N13.2 Hydronephrosis with renal and ureteral calculous obstruction (principal)
CPT/HCPCS: 99204

== ENCOUNTER → 2023-12-27 11:00 | Outpatient (BNVA) | payer OTHER, SELFPAY | PROVIDERS: PCP Nurse Practitioner Family; Visit Provider Nurse Practitioner Family | DX: N13.2 Hydronephrosis with renal and ureteral calculous obstruction (principal) | CPT/HCPCS: 81003 ==

== ENCOUNTER 2024-01-01 13:38 | Outpatient (REF) | payer OTHER, SELFPAY ==
--- NOTE | ~2024-01-01 | US_ITS ---
EXAMINATION: US RETROPERITONEAL COMPLETE (RENAL) CLINICAL INFORMATION: Calculus of kidney. COMPARISON: Noncontrast CT abdomen and pelvis 11/28/2023. TECHNIQUE: Real-time imaging of the kidneys and bladder. FINDINGS: RIGHT KIDNEY: 9.2 x 5.2 x 4.3 cm (SAG x AP x TRV). The kidney is normal in size, contour, and echogenicity. Renal cortical thickness is normal. No calculi or focal parenchymal lesions. Previously seen nonobstructing right lower pole renal calculus is not seen. The hydronephrosis that was present at the time of the prior CT scan caused by an obstructing proximal ureteral stone appears improved with some minimal collecting system fullness but no gross hydronephrosis. LEFT KIDNEY: 9.1 x 4.0 x 3.5 cm (SAG x AP x TRV). The kidney is normal in size, contour, and echogenicity. Renal cortical thickness is normal. No calculi or focal parenchymal lesions. No hydronephrosis. BLADDER: Well distended and normal. Bilateral ureteral jets are demonstrated. Prevoid bladder volume is 269 mL. Postvoid bladder volume is 58 mL. US/US retroperitoneal comp IMPRESSION: 1. No renal calculi are seen. 2. The right-sided hydronephrosis seen on the prior CT scan appears to have resolved with some minimal residual collecting system fullness.
== END 2024-01-01 13:39 | disposition home or self-care (01) ==
LOC: HO.US 13:38
PROVIDERS: PCP Nurse Practitioner Family; Visit Provider Nurse Practitioner Family
DX: N13.2 Hydronephrosis with renal and ureteral calculous obstruction (principal)
CPT/HCPCS: 76770

== ENCOUNTER 2024-01-05 11:42 | Outpatient (AMB) | payer OTHER, SELFPAY ==
--- NOTE | 2024-01-05 11:42 | A.OFFVIS_ITS ---
Intake Intake Visit Reasons: 2 week follow up/ US(set) Intake Note: Patient presents for follow up visit for ureteral stone and ultrasound results Imagin01/01/24 Urology Medications: none Blood Thinner: none Tabulating Machine Mechanic Required: Yes Tabulating Machine Mechanic Name: COLETTE CID-CMI Allergies No Known Allergies [No Known Allergies*] Allergy (Verified 01/05/24 12:00) Medication List - Last Reconciled 01/05/24 by BRANDNO Brewer ibuprofen 600 mg PO Q6H PRN HPI HPI Comments History of Present Illness Details The Grace is a pleasant 58-year-old Mauritanian-speaking female patient of Dr. Paredes. She is being followed up on today via telehealth. Of note, patient was seen approximately 1 week ago as a new patient for 3 mm obstructing right lower pole stone at which time a renal ultrasound was ordered for further assessment evaluation as patient reported pain had since subsided. These results were reviewed with the patient today. Previously seen nonobstructing right lower pole renal calculus is not seen. The hydronephrosis that was present at the time of CT has now resolved. Left kidney with no calculi, lesions, and or hydronephrosis. The bladder is well distended and normal. Bilateral ureteral jets are demonstrated. Bilateral ureteral jets are demonstrated. Pre void bladder volume is approximately 270 mL. Postvoid bladder volume is approximately 60 mL. She otherwise denies any bothersome urinary issues or concerns. She denies urinary urgency, urinary frequency, incontinence, nocturia, hematuria, dysuria, foul smelling urine, changes to urinary stream, flank pain, fever, and or chills. She is happy with her current voiding parameters. She otherwise offers no other issues or concerns at this time. [facility] Medical History section wound complications (~1988) No pertinent past medical history Surgical History Status post laparoscopic cholecystectomy Family History Mother Stomach cancer Father Renal cell cancer HTN (hypertension) Diabetes Brother Liver cancer HTN (hypertension) Diabetes Social History Household Members: Spouse Housing: Apartment Do you presently have visiting nurse or other home services: No Alcohol intake: never Patient Tobacco Use Status: Never used Tobacco e-Cigarette/Vaping Use: Never Used service: No Review of Systems Const All systems reviewed & are unremarkable except as noted in HPI and below Physical Exam Const General: cooperative Orientation/consciousness: patient oriented x3 Resp Effort & Inspection: able to speak in complete sentences Neuro General: patient oriented x3 Psych Speech and movement: Clear speech present Attitude: cooperative Thought process: Normal thought process present Thought content: Normal thought content present Insight: Fair insight present (Psych) Judgement: Fair judgement present (Psych) Results Reviewed Results Reviewed: Date of Service: 01/01/24 EXAMINATION: US RETROPERITONEAL COMPLETE (RENAL) FINDINGS: RIGHT KIDNEY: 9.2 x 5.2 x 4.3 cm (SAG x AP x TRV). The kidney is normal in size, contour, and echogenicity. Renal cortical thickness is normal. No calculi or focal parenchymal lesions. Previously seen nonobstructing right lower pole renal calculus is not seen. The hydronephrosis that was present at the time of the prior CT scan caused by an obstructing proximal ureteral stone appears improved with some minimal collecting system fullness but no gross hydronephrosis. LEFT KIDNEY: 9.1 x 4.0 x 3.5 cm (SAG x AP x TRV). The kidney is normal in size, contour, and echogenicity. Renal cortical thickness is normal. No calculi or focal parenchymal lesions. No hydronephrosis. BLADDER: Well distended and normal. Bilateral ureteral jets are demonstrated. Prevoid bladder volume is 269 mL. Postvoid bladder volume is 58 mL. IMPRESSION: 1. No renal calculi are seen. 2. The right-sided hydronephrosis seen on the prior CT scan appears to have resolved with some minimal residual collecting system fullness. Assessment & Plan Assessment & Plan (1) Nephrolithiasis: Code(s): N20.0 - Calculus of kidney Plan Recent retroperitoneal ultrasound results reviewed with the patient today; as noted above. Patient currently denies any bothersome urinary issues or concerns. She is happy with current voiding parameters. She discusses attempting to drink plenty of water daily. Discussed adding 1 oz of lemon juice to water daily. Discussed metabolic workup with 24 hour urine collection and labs;however patient declines at this time. Will obtain renal ultrasound in 6 months. Follow-up in 6 months with imaging to be completed prior; or sooner with any issues, concerns, and or questions. Orders: Orders US renal BI 6 Months N20.0 - Calculus of kidney Patient Instructions: The patient had an opportunity to ask questions regarding the treatment plan. All questions were answered. Physical exam, labs, and imaging were discussed and reviewed in detail. As well as risks, benefits, and discussion of treatment choices. No major barriers to understanding were identified. The patient expressed understanding and agreement with the above treatment plan. The patient was made aware they should contact our office by phone for worsening of their current condition, the appearance of new symptoms, or with any questions or concerns. Compliance is encouraged with any medications and follow up testing that is ordered. It is a privilege to be allowed the opportunity to participate in? your urological care.? Again, if you have any questions or concerns If you have any questions or concerns please do not hesitate to contact me. The office is [phone]. This note is constructed using voice recognition software. While every effort has been made to ensure accuracy faro dealer errors may have been included. Yours sincerely, ROSAS Brewer Telehealth Telehealth Location of provider rendering services: practice address Location of patient: address on file Patient Identification confirmed using: Name, : Yes Telehealth method: voice only Patient verbally consented to treatment: Yes Patient verbally consented to billing insurance company: Yes Patient informed of any privacy concerns related to visit: Yes Minutes spent on Phone/Video with Pt.: 15 Coding Level of Care Code Tele Est Pt Level 3 (62028) Diagnoses Nephrolithiasis N20.0
== END 2024-01-05 12:05 | disposition home or self-care (01) ==
LOC: HO.HUSH 11:42
PROVIDERS: PCP Nurse Practitioner Family; Visit Provider Nurse Practitioner Family
DX: N20.0 Calculus of kidney (principal)
CPT/HCPCS: 99213

== ENCOUNTER → 2024-01-05 11:42 | Outpatient (BNVA) | payer OTHER, SELFPAY | PROVIDERS: PCP Nurse Practitioner Family; Visit Provider Nurse Practitioner Family ==

== ENCOUNTER 2024-03-21 13:27 | Outpatient (AMB) | payer OTHER, SELFPAY ==
--- NOTE | 2024-03-21 13:30 | MHC.PC.OV ---
Vital Signs 03/21/24 13:33 Height 4 ft 2 in Weight 108 lb 4 oz BMI 30.4 BP 130/74 Blood Pressure Location Lt brachial Position Sitting Pulse 103 H Pulse Source Pulse Oximeter Pulse Oximetry (%) 99 Oxygen Delivery Method Room Air Intake Visit Reasons: Annual exam - see comments Intake Note: Patient is here today for a physical. Management Trainee Required: Yes Management Trainee Language: Workers Compensation Adjuster Name: Anahi (Sister akil) Information Interpreted: non-clinical & clinical Information Services Assistant: Present Accompanied by: sister akil Allergies No Known Allergies [No Known Allergies*] Allergy (Verified 03/21/24 13:33) Tobacco use date assessed: 03/21/24 Dental Screening Dental Screen Date: 03/21/24 Did you have a dental visit in the last 12 months?: No Did you have a dental problem in the last 6 months where you did not have access to dental care?: No Was dental information given to patient?: No (Dentures) HPI Annual exam - see comments HPI Details 58-year-old female presents to the office requesting an annual physical exam. [facility] Medical History section wound complications (~1988) No pertinent past medical history Surgical History Status post laparoscopic cholecystectomy Family History Mother Stomach cancer Father Renal cell cancer HTN (hypertension) Diabetes Brother Liver cancer HTN (hypertension) Diabetes Social History Household Members: Spouse Housing: Apartment Do you presently have visiting nurse or other home services: No Alcohol intake: never Patient Tobacco Use Status: Never used Tobacco e-Cigarette/Vaping Use: Never Used Second Hand Smoke Exposure: No service: No Cognitive needs: No Hearing needs: No Vision needs: Yes (Glasses) Questionnaire PHQ-9 Over the last 2 weeks, how often have you been bothered by any of the following problems? 1. Little interest or pleasure in doing things: not at all 2. Feeling down, depressed, or hopeless: not at all 3. Trouble falling or staying asleep, or sleeping too much: not at all 4. Feeling tired or having little energy: not at all 5. Poor appetite or overeating: not at all 6. Feeling bad about yourself - or that you are a failure or have let yourself or your family down: not at all 7. Trouble concentrating on things, such as reading the newspaper or watching television: not at all 8. Moving or speaking so slowly that other people could have noticed. Or the opposite - being so fidgety or restless that you have been moving around a lot more than usual: not at all 9. Thoughts that you would be better off or of hurting yourself in some way: not at all Total score: 0 Depression Screening Interpretation: Negative Depression Screening Done: Yes Source: Developed by Drs. Isaac Anderson, Ivelisse Feng, Tong Foy and colleagues, with an educational jae from [employer]. Thrive Questionnaire Date Thrive assessed: 03/21/24 I am a: Patient What is your living situation today?: I have a steady place to live Within the past 12 months, did the food you bought not last and you didn't have the money to get more?: Never true Within the past 12 months, did you worry whether your food would run out before you got money to buy more?: Never true Do you have trouble paying for medicines?: No Do you have trouble getting transportation to medical appointments?: No Do you have trouble paying your heating and electricity bill?: No Do you have trouble taking care of your child, family member or friend?: No Do you have trouble with day-to-day activities such as bathing, preparing meals, shopping, managing finances, etc.?: No Are you currently unemployed and looking for a job?: No Are you interested in more education?: No Currently or been in a relationship where the following occur: No concerns reported THRIVE Score: 0 AUDIT C Alcohol Use Questionnaire (AUDIT-C) 1. How often do you have a drink containing alcohol?: Never Total Score: 0 CHINYERE-7 AMB Questionnaire CHINYERE-7 Date CHINYERE - 7 assessed: 03/21/24 Feeling nervous, anxious, or on edge: 0 = Not at all Not being able to stop or control worryin = Not at all Worrying too much about different things: 0 = Not at all Trouble relaxin = Not at all Being so restless that it is hard to sit still: 0 = Not at all Becoming easily annoyed or irritable: 0 = Not at all Feeling afraid as if something awful might happen: 0 = Not at all Total CHINYERE-7 score (0-4 normal; 5-9 mild; 10-14 moderate; 15-21 severe): 0 Source: Developed by Drs. Isaac Anderson, Ivelisse Feng, Tong Foy and colleagues, with an educational jae from [employer]. Physical exam (Primary Care) Vital Signs: Last Vital Signs Pulse 103 H 03/21/24 13:33 BP 130/74 03/21/24 13:33 Pulse Ox 99 03/21/24 13:33 Oxygen Delivery Method Room Air 03/21/24 13:33 BMI result Body Mass Index 30.4 Tobacco/Smoking Status: Tobacco use Status Tobacco use date assessed 03/21/24 03/21/24 13:39 Patient Tobacco Use Status Never used Tobacco 03/21/24 13:31 e-Cigarette/Vaping Use Never Used 03/21/24 13:31 PHQ-9: PHQ-9 Score PHQ-9: Total score 0 03/21/24 13:31 Depression Screening Interpretation: Negative Thrive Assessment: Date of Thrive Assessment Date Thrive assessed 03/21/24 03/21/24 13:31 Currently or been in a relationship where the following occur: No concerns reported Const General: cooperative and healthy appearing Nutritional Appearance: well nourished Orientation/consciousness: patient oriented x3 Limitations: no limitations HENMT Head: Yes normal to inspection Eyes General: appearance normal, both eyes and all related structures Neck Neck: Yes normal visual inspection Chest Chest palpation & inspection: normal palpation of entire chest wall Resp Effort & Inspection: normal respiratory effort Neuro General: patient oriented x3 Assessment and Plan Assessment & Plan (1) Annual physical exam: Code(s): Z00.00 - Encounter for general adult medical examination without abnormal findings Plan: Continues to decline mammogram. Cologuard test was negative. Blood work done in November reviewed with patient. Medications: Refilled ibuprofen 600 mg PO Q6H PRN 30 tabs 0RF pain Coding Level of Care Code Est Pt Prev Care 40-64y(42939) Diagnoses Annual physical exam Z00.00
[2024-03-21 13:33] VITALS: BP 130/74; PULSE 103; O2SAT 99; BMI 30.4
== END 2024-03-21 13:55 | disposition home or self-care (01) ==
PROVIDERS: PCP Nurse Practitioner Family; Visit Provider Internal Medicine
DX: Z00.00 Encounter for general adult medical examination without abnormal findings (principal)
CPT/HCPCS: 99396

== ENCOUNTER 2024-06-20 12:19 | Outpatient (REF) | payer OTHER, SELFPAY ==
--- NOTE | ~2024-06-20 | US_ITS ---
EXAMINATION: US RETROPERITONEAL LIMITED (RENAL ONLY) CLINICAL INFORMATION: Calculus of kidney. COMPARISON: Ultrasound kidneys and bladder 01/01/2024. CT abdomen and pelvis 11/28/2023. Ultrasound abdomen limited 12/20/2022. TECHNIQUE: Real-time imaging of the kidneys. FINDINGS: RIGHT KIDNEY: 7.6 x 3.9 x 4.3 cm (SAG x AP x TRV). The kidney is normal in size, contour, and echogenicity. Renal cortical thickness is normal. No calculi or focal parenchymal lesions. No hydronephrosis. LEFT KIDNEY: 8.8 x 3.4 x 3.7 cm (SAG x AP x TRV). The kidney is normal in size, contour, and echogenicity. Renal cortical thickness is normal. No calculi or focal parenchymal lesions. No hydronephrosis. US/US renal BI IMPRESSION: No hydronephrosis. No gross renal lesion.. Electronically signed by: Jacques Gonzales MD 07/31/2024 10:48 AM ROBB
== END 2024-06-20 12:20 | disposition home or self-care (01) ==
LOC: HO.US 12:19
PROVIDERS: PCP Nurse Practitioner Family; Visit Provider Nurse Practitioner Family
DX: N20.0 Calculus of kidney (principal)
CPT/HCPCS: 76775

== ENCOUNTER → 2024-06-20 12:22 | Outpatient (BNV) | payer OTHER, SELFPAY | PROVIDERS: PCP Nurse Practitioner Family; Visit Provider Radiology Diagnostic Radiology | DX: N20.0 Calculus of kidney (principal) | CPT/HCPCS: 76775 ==

== ENCOUNTER 2024-07-01 13:14 | Outpatient (AMB) | payer OTHER, SELFPAY ==
--- NOTE | 2024-07-01 13:33 | A.OFFVIS_ITS ---
Intake Visit Reasons: 6m follow up/imaging(set) Intake Note: Patient presents for follow up visit for ureteral stone and ultrasound results Imagin06/20/24 Urology Medications: none Blood Thinner: none Polish Compounder Required: Yes Allergies No Known Allergies [No Known Allergies*] Allergy (Verified 07/01/24 13:46) Medication List - Last Reconciled 07/01/24 by BRANDON Brewer ibuprofen 600 mg PO Q6H PRN HPI Comments Details: The Grace is a pleasant 58-year-old Hungarian-speaking female patient of Dr. Paredes who was accompanied by her friend at today's office visit. She presents to the office today for follow-up of her nephrolithiasis. In discussion with the patient today she reports to be doing and feeling well. She currently denies any bothersome urinary issues or concerns. Recent renal imaging results reviewed with the patient today. Bilateral kidneys are normal in size, contour, and echogenicity. No renal calculi, lesions, and or hydronephrosis noted bilaterally. When asked she denies urinary urgency, urinary frequency, incontinence, nocturia, hematuria, dysuria, foul smelling urine, changes to urinary stream, flank pain, fever, and or chills. She is happy with her current voiding parameters. In office urinalysis results reviewed with the patient today. When asked she reports to be drinking plenty of water daily. She otherwise offers no other issues or concerns at this time. [facility] Medical History section wound complications (~1988) No pertinent past medical history Surgical History Status post laparoscopic cholecystectomy Family History Mother Stomach cancer Father Renal cell cancer HTN (hypertension) Diabetes Brother Liver cancer HTN (hypertension) Diabetes Social History Household Members: Spouse Housing: Apartment Do you presently have visiting nurse or other home services: No Alcohol intake: never Patient Tobacco Use Status: Never used Tobacco e-Cigarette/Vaping Use: Never Used Second Hand Smoke Exposure: No service: No Cognitive needs: No Hearing needs: No Vision needs: Yes (Glasses) Review of Systems Const All systems reviewed & are unremarkable except as noted in HPI and below Physical Exam Const General: cooperative, healthy appearing, comfortable, no acute distress, well developed, alert and awake Nutritional Appearance: average body habitus Orientation/consciousness: patient oriented x3 Limitations: no limitations HEENT Head: Yes normal to inspection, Yes normocephalic and Yes atraumatic Ears: hearing grossly normal bilaterally Eyes General: appearance normal, both eyes and all related structures Neck Neck: Yes normal visual inspection and Yes trachea midline Chest Chest palpation & inspection: normal inspection of the chest Resp Effort & Inspection: normal respiratory effort and able to speak in complete sentences Cardio Rate: regular rate GI Inspection: Yes normal to inspection General: Yes no CVA tenderness Back/Spine/Pelvis Back: no CVA tenderness Skin General skin exam: no rashes or lesions noted Neuro General: patient oriented x3 Extrem General: Yes normal to inspection Psych Appearance: grossly normal and well kempt Mental Status: mental status grossly normal Speech and movement: Normal speech and movement present and Clear speech present Affect: normal affect Attitude: cooperative Thought process: Normal thought process present Thought content: Normal thought content present Insight: Fair insight present (Psych) Judgement: Fair judgement present (Psych) Results AMB Urinalysis, Automated UA Leukoctes 0 Sarath/uL Last Edit by Damian Zimmer on 07/01/24 14:02 UA Nitrite Negative Last Edit by Damian Zimmer on 07/01/24 14:02 UA Urobilinogen 0.2 mg/dL Last Edit by [email or web address] delia Zimmer on 07/01/24 14:02 UA Protein 0 mg/dL Last Edit by [email or web address] Zimmer on 07/01/24 14:02 UA pH 6.0 Last Edit by [email or web address] Zimmer on 07/01/24 14:02 UA Blood 0 True/uL Last Edit by [email or web address] Zimmer on 07/01/24 14:02 UA Specific [place] 1.005 Last Edit by Damian Zimmer on 07/01/24 14:02 UA Ketone Negative Last Edit by Damian Zimmer on 07/01/24 14:02 UA Bilirubin 0 mg/dL Last Edit by Damian Zimmer on 07/01/24 14:02 UA Glucose 0 mg/dL Last Edit by Damian Zimmer on 07/01/24 14:02 Results Reviewed Results Reviewed: Laboratory Last Values Urine pH (Auto) 6.0 07/01/24 14:01 Specific [place] (Auto) 1.005 07/01/24 14:01 Urine Protein (Auto) 0 mg/dL 07/01/24 14:01 Glucose (UA)(Auto) 0 mg/dL 07/01/24 14:01 Urine Ketones (Auto) Negative 07/01/24 14:01 Urine Blood (Auto) 0 True/uL 07/01/24 14:01 Urine Nitrite (Auto) Negative 07/01/24 14:01 Urine Bilirubin (Auto) 0 mg/dL 07/01/24 14:01 Urine Urobilinogen (Auto) 0.2 mg/dL 07/01/24 14:01 Leukocyte Esterase (Auto) 0 Sarath/uL 07/01/24 14:01 Date of Service: 06/20/24 EXAMINATION: US RETROPERITONEAL LIMITED (RENAL ONLY) FINDINGS: RIGHT KIDNEY: 7.6 x 3.9 x 4.3 cm (SAG x AP x TRV). The kidney is normal in size, contour, and echogenicity. Renal cortical thickness is normal. No calculi or focal parenchymal lesions. No hydronephrosis. LEFT KIDNEY: 8.8 x 3.4 x 3.7 cm (SAG x AP x TRV). The kidney is normal in size, contour, and echogenicity. Renal cortical thickness is normal. No calculi or focal parenchymal lesions. No hydronephrosis. IMPRESSION: No hydronephrosis. No gross renal lesion. Assessment & Plan Assessment & Plan (1) Hydronephrosis with renal and ureteral calculus obstruction: Code(s): N13.2 - Hydronephrosis with renal and ureteral calculous obstruction Category: Medical (2) Nephrolithiasis: Code(s): N20.0 - Calculus of kidney Category: Medical Plan In office urinalysis results reviewed with the patient today; as noted above. Recent renal imaging results reviewed with the patient today; as noted above. Patient currently denies any bothersome urinary issues or concerns. She reports be happy with current voiding parameters. Continue drinking plenty of water daily. Continue adding 1 oz of lemon juice to water daily. Will obtain renal ultrasound in 1 year. Follow-up in 1 year with renal ultrasound to be completed prior; or sooner with any issues, concerns, and or questions. Orders: Orders US renal BI 1 Year N20.0 - Calculus of kidney AMB Urinalysis Automated 07/01/24 Z13.9 - Encounter for screening, unspecified Patient Instructions: The patient had an opportunity to ask questions regarding the treatment plan. All questions were answered. Physical exam, labs, and imaging were discussed and reviewed in detail. As well as risks, benefits, and discussion of treatment choices. No major barriers to understanding were identified. The patient expressed understanding and agreement with the above treatment plan. The patient was made aware they should contact our office by phone for worsening of their current condition, the appearance of new symptoms, or with any questions or concerns. Compliance is encouraged with any medications and follow up testing that is ordered. It is a privilege to be allowed the opportunity to participate in? your urological care.? Again, if you have any questions or concerns If you have any questions or concerns please do not hesitate to contact me. The office is [phone]. This note is constructed using voice recognition software. While every effort has been made to ensure accuracy administrative fellow errors may have been included. Yours sincerely, BRANDON Brewer Coding Level of Care Code Est Pt Level 3 (24097) Diagnoses Hydronephrosis with renal and ureteral calculus obstruction N13.2 Nephrolithiasis N20.0
== END 2024-07-01 13:44 | disposition home or self-care (01) ==
PROVIDERS: PCP Nurse Practitioner Family; Visit Provider Nurse Practitioner Family
DX: N13.2 Hydronephrosis with renal and ureteral calculous obstruction (principal); N20.0 Calculus of kidney
CPT/HCPCS: 99213

== ENCOUNTER → 2024-07-01 13:14 | Outpatient (BNVA) | payer OTHER, SELFPAY | PROVIDERS: PCP Nurse Practitioner Family; Visit Provider Nurse Practitioner Family | DX: N13.2 Hydronephrosis with renal and ureteral calculous obstruction (principal) | CPT/HCPCS: 81003 ==

== ENCOUNTER 2024-09-19 14:39 | Outpatient (AMB) | payer OTHER, SELFPAY ==
--- NOTE | 2024-09-19 14:43 | A.OFFPC_ITS ---
Vital Signs 09/19/24 14:44 Height 4 ft 2 in Weight 111 lb 8 oz BMI 31.4 BP 130/68 Blood Pressure Location Lt brachial Position Sitting Pulse 85 Pulse Source Pulse Oximeter Pulse Oximetry (%) 97 Oxygen Delivery Method Room Air Intake Visit Reasons: 6mth f/u Intake Note: Patient is here to follow up on health. Pt decline flu shot today. Vp Public Relations Required: Yes Vp Public Relations Language: Cargo Operations Agent Name: Diana (sister akil) Information Interpreted: non-clinical & clinical Field Sales Associate: Present Accompanied by: sister akil Allergies No Known Allergies [No Known Allergies*] Allergy (Verified 09/19/24 15:14) Medication List - Last Reconciled 09/19/24 by Ashley Adamson PA-C ibuprofen 600 mg PO Q6H PRN Tobacco use date assessed: 09/19/24 Dental Screening Dental Screen Date: 03/21/24 [facility] Medical History (Updated 09/19/24 @ 15:22 by Ashley Adamson PA-C) Colon cancer screening (~01/20/23) section wound complications (~1988) No pertinent past medical history Surgical History Status post laparoscopic cholecystectomy Family History Mother Stomach cancer Father Renal cell cancer HTN (hypertension) Diabetes Brother Liver cancer HTN (hypertension) Diabetes Social History Household Members: Spouse Housing: Apartment Do you presently have visiting nurse or other home services: No Alcohol intake: never Patient Tobacco Use Status: Never used Tobacco e-Cigarette/Vaping Use: Never Used Second Hand Smoke Exposure: No service: No Current occupational status: employed Cognitive needs: No Hearing needs: No Vision needs: Yes (Glasses) Questionnaire Thrive Questionnaire Date Thrive assessed: 03/21/24 CHINYERE-7 AMB Questionnaire CHINYERE-7 Date CHINYERE - 7 assessed: 03/21/24 Source: Developed by Drs. Isaac Anderson, Ivelisse Feng, Tong Foy and colleagues, with an educational jae from [employer]. Physical exam (Primary Care) Vital Signs: Last Vital Signs Pulse 85 09/19/24 14:44 BP 130/68 09/19/24 14:44 Pulse Ox 97 09/19/24 14:44 Oxygen Delivery Method Room Air 09/19/24 14:44 BMI result Body Mass Index 31.4 Tobacco/Smoking Status: Tobacco use Status Tobacco use date assessed 09/19/24 09/19/24 14:52 Patient Tobacco Use Status Never used Tobacco 09/19/24 14:52 e-Cigarette/Vaping Use Never Used 09/19/24 14:52 Thrive Assessment: Date of Thrive Assessment Date Thrive assessed 03/21/24 09/19/24 14:52 Results AMB Hemoglobin A1c AMB Hemoglobin A1c 5.5 % Last Edit by GRETA Lucas on 09/19/24 14:57 Results Reviewed Results Reviewed: Laboratory Last Values Hgb A1c (Clinic) 5.5 % (4.0-6.0) 09/19/24 14:42 Coding Level of Care Code Est Pt Level 4 (20177) Complex EM visit Add On G2211 Diagnoses Follow-up exam, 3-6 months since previous exam Z09 Screening mammography declined Z53.20 Colon cancer screening Z12.11 Elevated blood pressure reading R03.0 Assessment & Plan Assessment & Plan (1) Follow-up exam, 3-6 months since previous exam: Code(s): Z09 - Encounter for follow-up examination after completed treatment for conditions other than malignant neoplasm Category: Medical (2) Screening mammography declined: Code(s): Z53.20 - Procedure and treatment not carried out because of patient's decision for unspecified reasons Category: Medical (3) Colon cancer screening: Onset Date: ~01/20/23 Comment: Negative Cologuard screening Code(s): Z12.11 - Encounter for screening for malignant neoplasm of colon Category: Medical (4) Elevated blood pressure reading: Code(s): R03.0 - Elevated blood-pressure reading, without diagnosis of hypertension Category: Medical Plan Plan - Influenza vaccine offered although patient declined. - Fasting labs ordered to assess CBC, CMP, lipid panel, liver panel, magnesium, vitamin D, vitamin B12, and folate levels. - Patient advised on the importance of mammography for breast cancer screening despite current refusal. patient continues to decline mammogram. - Monitoring blood pressure and keeping a diary. Bring to next 6 month follow-up Orders: Orders Complete Blood Count Auto Diff Today Ashley Adamson, PA-C Z09 - Encounter for follow-up examination after completed treatment for conditions other than malignant neoplasm Comprehensive Hector. Panel Fast Today Ashley Adamson PA-C Z09 - Encounter for follow-up examination after completed treatment for conditions other than malignant neoplasm Magnesium Today Ashley Adamson PA-C Z09 - Encounter for follow-up examination after completed treatment for conditions other than malignant neoplasm Liver Panel Today Ashley Adamson PA-C Z09 - Encounter for follow-up examination after completed treatment for conditions other than malignant neoplasm Lipid Panel Today Ashley Adamson PA-C Z09 - Encounter for follow-up examination after completed treatment for conditions other than malignant neoplasm Vitamin D 25-OH Total Today Ashley Adamson PA-C Z09 - Encounter for follow-up examination after completed treatment for conditions other than malignant neoplasm AMB Hemoglobin A1c Today Hakeem Villatoro MD Z13.9 - Encounter for screening, unspecified TSH reflex Free T4 Today Ashley Adamson PA-C Z09 - Encounter for follow-up examination after completed treatment for conditions other than malignant neoplasm Vitamin B12 and Folate Today Ashley Adamson PA-C Z09 - Encounter for follow-up examination after completed treatment for conditions other than malignant neoplasm C Reactive Protein Today Ashley Adamson PA-C Z09 - Encounter for follow-up examination after completed treatment for conditions other than malignant neoplasm Erythrocyte Sedimentation Rate Today Ashley Adamson PA-C Z09 - Encounter for follow-up examination after completed treatment for conditions other than malignant neoplasm Patient Instructions: Patient Instructions - Consider receiving the influenza vaccine today for preventative health although patient declined. - Attend the lab for fasting blood tests ensuring no food intake from midnight before the test, though water, tea, or black coffee without sugar or milk is permissible. - Maintain a healthy diet and lifestyle to prevent any development of diabetes. - Consider the benefits of undergoing mammography screening. - Monitoring blood pressure and keeping a diary. Bring to next 6 month follow-up Scribe Plan - Not visible on output: History of Present Illness The patient is a 58-year-old female presenting for a six-month follow-up visit. She has an emergency room visit in November which was prompted by symptoms related to kidney stones and gall stones. During that emergency visit, blood glucose levels were noted to be elevated at 135 mg/dL, leading to a concern for possible diabetes. However, recent lab work today in the office showed an A1C of 5.5%, indicating that diabetes is not present at this time. The patient has no history of hypertension or other chronic conditions requiring regular medication, apart from occasional use of ibuprofen for aches and pains when she has them. Additionally, there has been some resistance or apprehension regarding mammography screenings despite a family history of gastrointestinal cancer. The patient denies any significant family history of breast cancer. Patient had a Cologuard 12/20/2022 which was negative. She reports she had HPV screening many many years ago although has not seen an OBGYN recently and is not interested in being referred to an OBGYN for HPV screening. There are no current symptoms suggesting ongoing endocrine, cardiovascular, or infectious conditions. The patient's health maintenance concerns are primarily preventative, including the decision about influenza vaccination at today's visit, which she declined. Patient reports she had a visual exam this year and had new glasses although she is not wearing them at this time. She does not have normal routine dental care due to she wears dentures. Patient's blood pressure was 130/68 today and appears that she is usually in the 130s over 70s. She denies any cardiac related complaints. Patient is not interested in starting any antihypertensive medications at this time. Her [id number] is at bedside. Patient lives with her . 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 Her son recently . She denies any concerns at this time. 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 - Housing: Lives with spouse and is functionally independent. - Mobility: No driver/sales workers's license; relies on walking to commute from work to home. - Family Status: Lives with and was accompanied by [id number] to the clinic Physical Exam Appearance: Alert. Oriented X3. No acute distress. Head: Normal external exam. Normocephalic. Atraumatic. No Reyes signs noted. No raccoon eyes noted Eyes: Pupils are equal, round, and reactive to light. Extraocular movements intact. Conjunctiva and sclera normal. Eyelids normal. Ears: External auditory canal normal. Tympanic membranes normal. Throat: Pharynx normal. Uvula midline. Moist mucous membranes. No trismus noted. No drooling noted. No muffled voice noted. Neck: Normal inspection. Neck supple. Full range of motion. No adenopathy. Thyroid Normal. No meningeal signs. No neck mass noted. Cardiovascular: Normal heart rate and rhythm. Heart sound normal. No murmurs noted. Pulses normal throughout. Respiratory: No respiratory distress. Painless inspiration. Breath sounds normal. No wheezes/rales/rhonchi noted. Chest nontender. No accessory muscle usage noted or decreased air movement noted. Abdomen: Soft and nontender. Bowel sounds normal in all 4 quadrants. No distention noted. No organomegaly noted. No visible injury noted. Back: No costovertebral angle tenderness. Full range of motion noted. Skin: Skin warm and dry. Normal skin color. Normal skin turgor. No rashes/lesions/lacerations noted. Extremities: No lower extremity edema. Extremities exhibit normal range of motion. Extremities nontender. Neuro: Oriented X 3. No motor deficit. No sensory deficit. Reflexes normal. Results - Labs: A1C of 5.5%, indicating no diabetes. Plan - Influenza vaccine offered although patient declined. - Fasting labs ordered to assess CBC, CMP, lipid panel, liver panel, magnesium, vitamin D, vitamin B12, and folate levels. - Patient advised on the importance of mammography for breast cancer screening despite current refusal. patient continues to decline mammogram. - Monitoring blood pressure and keeping a diary. Bring to next 6 month follow-up Patient was informed and verbally consented to the use of an ambient scribe for clinic note documentation during this visit. Discussion Notes I discussed the benefits of the influenza vaccination and encouraged the patient to consider it for preventative health measures. We reviewed her current A1C results, confirming the absence of diabetes, and discussed maintaining healthy lifestyle habits to sustain this status. I addressed the patient's concerns about mammography and highlighted its diagnostic importance, especially given her family history, reassuring her about the procedure itself to alleviate fears. I explained the upcoming fasting lab tests to investigate potential deficiencies in CBC, CMP, lipid panel, liver panel, magnesium, vitamin D, B12, and folate, advising her to refrain from eating before the test for accuracy. - Monitoring blood pressure and keeping a diary. Bring to next 6 month follow-up. We agreed to follow up on any abnormal findings. Patient Instructions - Consider receiving the influenza vaccine today for preventative health although patient declined. - Attend the lab for fasting blood tests ensuring no food intake from midnight before the test, though water, tea, or black coffee without sugar or milk is permissible. - Maintain a healthy diet and lifestyle to prevent any development of diabetes. - Consider the benefits of undergoing mammography screening. - monitor your blood pressure and keep a diary.
[2024-09-19 14:44] VITALS: BP 130/68; PULSE 85; O2SAT 97; BMI 31.4
== END 2024-09-19 15:13 | disposition home or self-care (01) ==
PROVIDERS: PCP Internal Medicine; Visit Provider Internal Medicine
DX: Z09 Encounter for follow-up examination after completed treatment for conditions other than malignant neoplasm (principal); Z53.20 Procedure and treatment not carried out because of patient's decision for unspecified reasons; Z12.11 Encounter for screening for malignant neoplasm of colon; R03.0 Elevated blood-pressure reading, without diagnosis of hypertension

== ENCOUNTER → 2024-09-19 14:39 | Outpatient (BNVA) | payer OTHER, SELFPAY | PROVIDERS: PCP Internal Medicine; Visit Provider Internal Medicine | DX: Z09 Encounter for follow-up examination after completed treatment for conditions other than malignant neoplasm (principal); R03.0 Elevated blood-pressure reading, without diagnosis of hypertension; E55.9 Vitamin D deficiency, unspecified; Z28.21 Immunization not carried out because of patient refusal | CPT/HCPCS: 83036 ==

== ENCOUNTER 2024-09-20 06:08 | Outpatient (REF) | payer OTHER, SELFPAY ==
[2024-09-20 06:20] LABS: MANUAL DIFF FLAG NO
[2024-09-20 07:50] LABS: Basophils Percent Auto 0.5 % (0-2); Eosinophils Absolute Auto 0.1 X10*3/uL (0.0-0.4); Eosinophils Percent Auto 1.3 % (0-4); Hematocrit 37.7 % (37.0-47.0); Hemoglobin 12.7 g/dl (12.0-16.0); Imm Gran Abs Auto 0.02 X10*3/uL (0.00-0.03); Imm Gran Pct Auto 0.4 % (0.0-0.4); Lymphocytes Absolute Auto 1.7 X10*3/uL (1.2-4.9); Lymphocytes Percent Auto 31.1 % (20-40); Mean Corpuscular HGB Conc 33.7 g/dl (31.0-35.0); Mean Platelet Volume 9.6 fL (9.4-12.3); Monocytes Absolute Auto 0.5 X10*3/uL (0.1-1.2); Monocytes Percent Auto 9.9 % (2-11); Neutrophils Absolute Auto 3.1 x10*3/uL (2.0-8.3); Neutrophils Percent Auto 56.8 % (45-73); Platelet Count 346 X10*3/uL (160-400); Red Blood Count 3.97 X10*6/uL (4.20-5.50); Red Cell Distribution Width 11.9 % (11.0-16.0); White Blood Count 5.5 X10*3/uL (4.8-10.8)
[2024-09-20 08:22] LABS: Alanine Aminotransferase 16 U/L (0-31); Albumin Level 4.3 g/dL (3.5-5.0); Alkaline Phosphatase 99 U/L (39-117); Anion Gap 11 (12-20); Aspartate Amino Transferase 21 U/L (5-31); Bilirubin Direct 0.1 mg/dL (0.0-0.5); Bilirubin Total 0.4 mg/dL (0.0-1.0); Blood Urea Nitrogen 17 mg/dL (9-16); C Reactive Protein 0.11 mg/dL (< or = 0.50); Calcium 9.1 mg/dL (8.4-10.2); Carbon Dioxide 26 mmol/L (22-29); Chloride 106 mmol/L (96-108); Cholesterol 218 mg/dL (<200); Estimated Glomerular Filt Rate > 60; Glucose Fasting 93 mg/dL (60-99); HDL Cholesterol 56 mg/dL (>40); LDL Cholesterol Calculated 143 mg/dL (<100); Potassium 4.3 mmol/L (3.3-5.1); Sodium 139 mmol/L (135-145); Triglycerides 95 mg/dL (<150)
[2024-09-20 08:25] LABS: Erythrocyte Sedimentation Rate 8 MM/HR (0-20)
[2024-09-20 08:42] LABS: Vitamin D 25-OH Total 22.4 ng/mL (>30)
[2024-09-20 08:50] LABS: Folate 10.3 ng/mL (> or = 4.0); Vitamin B12 257 pg/mL (200-900)
== END 2024-09-20 06:09 | disposition home or self-care (01) ==
LOC: HO.LAB 06:08
PROVIDERS: PCP Internal Medicine; Visit Provider Physician Assistant Medical
DX: Z09 Encounter for follow-up examination after completed treatment for conditions other than malignant neoplasm (principal); Z13.9 Encounter for screening, unspecified
CPT/HCPCS: 36415; 80053; 80061; 80076; 82306; 82607; 82746; 83735; 84443; 85025; 85652; 86140

== ENCOUNTER 2025-03-20 14:38 | Outpatient (AMB) | payer OTHER, SELFPAY ==
--- NOTE | 2025-03-20 14:41 | A.OFFPC_ITS ---
Vital Signs 03/20/25 14:44 Height 4 ft 2 in Weight 111 lb BMI 31.2 BP 140/62 H Blood Pressure Location Lt brachial Position Sitting Pulse 94 Pulse Source Pulse Oximeter Temp 97.1 F Temp Source Temporal Artery Scan Pulse Oximetry (%) 99 Oxygen Delivery Method Room Air Intake Visit Reasons: 6mth f/u Intake Note: Patient is here to follow up on HLD, Hypercholesterolemia. Ammonia Technician Required: Yes Ammonia Technician Language: Industrial Pharmacist Name: Anahi (bertin) Information Interpreted: non-clinical & clinical (pt decline piece dye worker service prefer bertin to translate) Food Service Specialist: Present Accompanied by: bertin Allergies No Known Allergies (No Known Allergies*) Allergy (Verified 03/21/25 10:18) Medication List - Last Reconciled 03/21/25 by Hakeem Villatoro MD atorvastatin 10 mg PO BEDTIME cholecalciferol (vitamin D3) 1,250 mcg PO QWEEK ibuprofen 600 mg PO Q6H PRN Tobacco use date assessed: 03/20/25 Dental Screening Dental Screen Date: 03/20/25 Did you have a dental visit in the last 12 months?: No Did you have a dental problem in the last 6 months where you did not have access to dental care?: No Was dental information given to patient?: Patient declined HPI 6mth f/u HPI Details 59-year-old female presents to the offic e to discuss her chronic medical conditions. She is accompanied by her friend who was translating on her behalf. Patient is compliant with medications and reporting no side effects. Able to function and do all activities of daily living. Currently requires no prescriptions. [facility] Medical History Colon cancer screening (~01/20/23) section wound complications (~1988) No pertinent past medical history Surgical History Status post laparoscopic cholecystectomy Family History Mother Stomach cancer Father Renal cell cancer HTN (hypertension) Diabetes Brother Liver cancer HTN (hypertension) Diabetes Social History Household Members: Spouse Housing: Apartment Do you presently have visiting nurse or other home services: No Alcohol intake: never Patient Tobacco Use Status: Never used Tobacco e-Cigarette/Vaping Use: Never Used Second Hand Smoke Exposure: No service: No Current occupational status: employed Cognitive needs: No Hearing needs: No Vision needs: Yes (Glasses) Questionnaire PHQ-9 Over the last 2 weeks, how often have you been bothered by any of the following problems? 1. Little interest or pleasure in doing things: not at all 2. Feeling down, depressed, or hopeless: not at all 3. Trouble falling or staying asleep, or sleeping too much: not at all 4. Feeling tired or having little energy: not at all 5. Poor appetite or overeating: not at all 6. Feeling bad about yourself - or that you are a failure or have let yourself or your family down: not at all 7. Trouble concentrating on things, such as reading the newspaper or watching television: not at all 8. Moving or speaking so slowly that other people could have noticed. Or the opposite - being so fidgety or restless that you have been moving around a lot more than usual: not at all 9. Thoughts that you would be better off or of hurting yourself in some way: not at all Total score: 0 Depression Screening Interpretation: Negative Depression Screening Done: Yes Source: Developed by Drs. Isaac Anderson, Ivelisse Feng, Tong Foy and colleagues, with an educational jae from [employer]. Thrive Questionnaire Date Thrive assessed: 03/20/25 I am a: Patient What is your living situation today?: I choose not to answer this question Within the past 12 months, did the food you bought not last and you didn't have the money to get more?: I choose not to answer this question Within the past 12 months, did you worry whether your food would run out before you got money to buy more?: Never true Do you have trouble paying for medicines?: No Do you have trouble getting transportation to medical appointments?: No Do you have trouble paying your heating and electricity bill?: No Do you have trouble taking care of your child, family member or friend?: No Do you have trouble with day-to-day activities such as bathing, preparing meals, shopping, managing finances, etc.?: No Are you currently unemployed and looking for a job?: No Are you interested in more education?: No Please select the resources that you would like help with: None Currently or been in a relationship where the following occur: I choose not to answer THRIVE Score: 0 AUDIT C Alcohol Use Questionnaire (AUDIT-C) 1. How often do you have a drink containing alcohol?: Never Total Score: 0 CHINYERE-7 AMB Questionnaire CHINYERE-7 Date CHINYERE - 7 assessed: 03/20/25 Feeling nervous, anxious, or on edge: 0 = Not at all Not being able to stop or control worryin = Not at all Worrying too much about different things: 0 = Not at all Trouble relaxin = Not at all Being so restless that it is hard to sit still: 0 = Not at all Becoming easily annoyed or irritable: 0 = Not at all Feeling afraid as if something awful might happen: 0 = Not at all Total CHINYERE-7 score (0-4 normal; 5-9 mild; 10-14 moderate; 15-21 severe): 0 Source: Developed by Drs. Isaac Anderson, Ivelisse Feng, Tong Foy and colleagues, with an educational jae from [employer]. Physical exam (Primary Care) Vital Signs: Last Vital Signs Temp 97.1 F 03/20/25 14:44 Pulse 94 03/20/25 14:44 BP 140/62 H 03/20/25 14:44 Pulse Ox 99 03/20/25 14:44 Oxygen Delivery Method Room Air 03/20/25 14:44 Care Plan Goal for BP management: Blood pressure is in range. BMI result Body Mass Index 31.2 Tobacco/Smoking Status: Tobacco use Status Tobacco use date assessed 03/20/25 03/20/25 14:50 Patient Tobacco Use Status Never used Tobacco 03/20/25 14:42 e-Cigarette/Vaping Use Never Used 03/20/25 14:42 PHQ-9: PHQ-9 Score PHQ-9: Total score 0 03/21/25 10:19 Depression Screening Interpretation: Negative Thrive Assessment: Date of Thrive Assessment Date Thrive assessed 03/20/25 03/20/25 14:50 Currently or been in a relationship where the following occur: I choose not to answer Const General: cooperative and healthy appearing Nutritional Appearance: well nourished Orientation/consciousness: patient oriented x3 Limitations: no limitations HENMT Head: Yes normal to inspection Eyes General: appearance normal, both eyes and all related structures Neck Neck: Yes normal visual inspection Chest Chest palpation & inspection: normal palpation of entire chest wall Resp Effort & Inspection: normal respiratory effort Neuro General: patient oriented x3 Coding Level of Care Code Est Pt Level 4 (88059) Complex EM visit Add On G2211 Diagnoses Hypercholesteremia E78.00 Elevated blood pressure reading R03.0 Assessment & Plan Assessment & Plan (1) Hypercholesteremia: Code(s): E78.00 - Pure hypercholesterolemia, unspecified Category: Medical Plan: Fasting blood work has been ordered. Based on the results, cholesterol medications will be adjusted. (2) Elevated blood pressure reading: Code(s): R03.0 - Elevated blood-pressure reading, without diagnosis of hypertension Category: Medical Plan: Blood pressure is in upper limits of normal range. Currently on no medications.
[2025-03-20 14:44] VITALS: BP 140/62; PULSE 94; TEMP 36.2; O2SAT 99; BMI 31.2
== END 2025-03-20 15:27 | disposition home or self-care (01) ==
LOC: HO.HMCH 14:38
PROVIDERS: PCP Internal Medicine; Visit Provider Internal Medicine
DX: E78.00 Pure hypercholesterolemia, unspecified (principal); R03.0 Elevated blood-pressure reading, without diagnosis of hypertension

== ENCOUNTER → 2025-03-20 14:38 | Outpatient (BNVA) | payer OTHER, SELFPAY | PROVIDERS: PCP Internal Medicine; Visit Provider Internal Medicine | DX: Z13.89 Encounter for screening for other disorder (principal) ==

== ENCOUNTER 2025-04-03 15:19 | Outpatient (AMB) | payer OTHER, SELFPAY ==
[2025-04-03 15:25] VITALS: BP 142/90; PULSE 94; TEMP 36.2; O2SAT 94; BMI 31.8
--- NOTE | 2025-04-03 15:25 | A.OFFPC_ITS ---
Vital Signs 04/03/25 15:25 Height 4 ft 2 in Weight 113 lb 4 oz BMI 31.8 BP 142/90 H Blood Pressure Location Lt brachial Position Sitting Pulse 94 Pulse Source Pulse Oximeter Temp 97.1 F Temp Source Temporal Artery Scan Pulse Oximetry (%) 94 Oxygen Delivery Method Room Air Intake Visit Reasons: Annual Exam - see comments Asphalt Paver Required: No Accompanied by: Sister in law Allergies No Known Allergies (No Known Allergies*) Allergy (Verified 04/03/25 15:33) Tobacco use date assessed: 03/20/25 Dental Screening Dental Screen Date: 03/20/25 [facility] Medical History Colon cancer screening (~01/20/23) section wound complications (~1988) No pertinent past medical history Surgical History Status post laparoscopic cholecystectomy Family History Mother Stomach cancer Father Renal cell cancer HTN (hypertension) Diabetes Brother Liver cancer HTN (hypertension) Diabetes Social History Household Members: Spouse Housing: Apartment Do you presently have visiting nurse or other home services: No Alcohol intake: never Patient Tobacco Use Status: Never used Tobacco e-Cigarette/Vaping Use: Never Used Second Hand Smoke Exposure: No service: No Current occupational status: employed Cognitive needs: No Hearing needs: No Vision needs: Yes (Glasses) Questionnaire Thrive Questionnaire Date Thrive assessed: 03/20/25 I am a: Patient What is your living situation today?: I choose not to answer this question Within the past 12 months, did the food you bought not last and you didn't have the money to get more?: I choose not to answer this question Within the past 12 months, did you worry whether your food would run out before you got money to buy more?: Never true Do you have trouble paying for medicines?: No Do you have trouble getting transportation to medical appointments?: No Do you have trouble paying your heating and electricity bill?: No Do you have trouble taking care of your child, family member or friend?: No Do you have trouble with day-to-day activities such as bathing, preparing meals, shopping, managing finances, etc.?: No Are you currently unemployed and looking for a job?: No Are you interested in more education?: No Please select the resources that you would like help with: None Currently or been in a relationship where the following occur: I choose not to answer THRIVE Score: 0 CHINYERE-7 AMB Questionnaire CHINYERE-7 Date CHINYERE - 7 assessed: 03/20/25 Source: Developed by Drs. Isaac Anderson, Ivelisse Feng, Tong Foy and colleagues, with an educational jae from [employer]. Physical exam (Primary Care) Vital Signs: Last Vital Signs Temp 97.1 F 04/03/25 15: Pulse 94 04/03/25 15:25 BP 142/90 H 04/03/25 15:25 Pulse Ox 94 04/03/25 15:25 Oxygen Delivery Method Room Air 04/03/25 15:25 BMI result Body Mass Index 31.8 Tobacco/Smoking Status: Tobacco use Status Tobacco use date assessed 03/20/25 04/03/25 15:25 Patient Tobacco Use Status Never used Tobacco 04/03/25 15:25 e-Cigarette/Vaping Use Never Used 04/03/25 15:25 Thrive Assessment: Date of Thrive Assessment Date Thrive assessed 03/20/25 04/03/25 15:25 Currently or been in a relationship where the following occur: I choose not to answer Coding Level of Care Code Est Pt Prev Care 40-64y(86914) Diagnoses Annual physical exam Z00.00 Assessment & Plan Assessment & Plan (1) Annual physical exam: Code(s): Z00.00 - Encounter for general adult medical examination without abnormal findings Plan: Declines any screening procedures. Has agreed to get fasting blood work done. Plan History of Present Illness - The patient is a 59-year-old female presenting with a wellness visit. - The patient has consistently refused mammograms, colonoscopies, and gynecological examinations despite recommendations. - She has not completed blood work ordered in February but plans to do so on Monday. - She works in an [employer] line, indicating a physically active job. Social History - Employment: Works in an assembly line, suggesting a physically active job. Review of Systems - Vision: Reports good vision with the use of glasses. - Genitourinary: Denies urinary problems. - Respiratory: Denies dyspnea. Physical Exam General: Cooperative and healthy appearing Nutritional Appearance: Well nourished Orientation/consciousness: Patient oriented x3 Limitations: No limitations Head: Normal to inspection General: Appearance normal, both eyes and all related structures Neck: Normal visual inspection Chest: Normal palpation of entire chest wall Respiratory: No shortness of breath ormal respiratory effort Neurology: Patient oriented x3 Results Plan 1. Preventative Care: Refusal Of Mammogram - Encourage patient to reconsider mammogram for breast cancer screening. 2. Preventative Care: Refusal Of Colonoscopy - Discuss the importance of colonoscopy for colorectal cancer screening. 3. Preventative Care: Refusal Of Gynecological Examination - Advise on the benefits of regular gynecological exams for early detection of potential issues. Discussion Notes Patient Instructions - Please complete the blood work on Monday as planned. - Consider the benefits of mammograms, colonoscopies, and gynecological exams for early detection of health issues.
== END 2025-04-03 16:12 | disposition home or self-care (01) ==
LOC: HO.HMCH 15:19
PROVIDERS: PCP Internal Medicine; Visit Provider Internal Medicine
DX: Z00.00 Encounter for general adult medical examination without abnormal findings (principal)

== ENCOUNTER 2025-04-05 07:08 | Outpatient (REF) | payer OTHER, SELFPAY ==
[2025-04-05 07:38] LABS: Hematocrit 36.0 % (37.0-47.0); Hemoglobin 12.1 g/dl (12.0-16.0); Mean Corpuscular HGB Conc 33.6 g/dl (31.0-35.0); Mean Corpuscular Hemoglobin 31.7 pg (27.0-33.0); Mean Corpuscular Volume 94.2 fL (80.0-98.0); NRBC Abs Auto 0.000 X10*3/uL (0.0-0.012); NRBC Pct Auto 0.0 /100WBC (0.0-0.2); Platelet Count 297 X10*3/uL (160-400); Red Blood Count 3.82 X10*6/uL (4.20-5.50); White Blood Count 5.1 X10*3/uL (4.8-10.8)
[2025-04-05 08:09] LABS: Appearance Urine Clear; Glucose Urine UA Negative (Negative); PH 7.0 (5.0-9.0); Specific Gravity - Urine 1.015 (1.005-1.025)
[2025-04-05 08:13] LABS: Alanine Aminotransferase 22 U/L (0-31); Albumin Level 4.4 g/dL (3.5-5.0); Alkaline Phosphatase 89 U/L (39-117); Anion Gap 10 (12-20); Aspartate Amino Transferase 26 U/L (5-31); Blood Urea Nitrogen 11 mg/dL (9-16); Calcium 9.0 mg/dL (8.4-10.2); Carbon Dioxide 27 mmol/L (22-29); Chloride 107 mmol/L (96-108); Cholesterol 157 mg/dL (<200); Estimated Glomerular Filt Rate > 60; HDL Cholesterol 62 mg/dL (>40); Potassium 4.2 mmol/L (3.3-5.1); Sodium 140 mmol/L (135-145); Total Protein 6.9 g/dL (6.5-8.0); Triglycerides 52 mg/dL (<150)
[2025-04-05 08:29] LABS: Thyroid Stimulating Hormone 1.47 uIU/mL (0.32-4.0)
== END 2025-04-05 07:09 | disposition home or self-care (01) ==
LOC: HO.LAB 07:08
PROVIDERS: PCP Internal Medicine; Visit Provider Internal Medicine
DX: E78.00 Pure hypercholesterolemia, unspecified (principal); R03.0 Elevated blood-pressure reading, without diagnosis of hypertension
CPT/HCPCS: 36415; 80048; 80061; 80076; 81003; 84443; 85027

== ENCOUNTER 2025-08-26 15:12 | Outpatient (REF) | payer OTHER, SELFPAY ==
--- NOTE | ~2025-08-26 | US_ITS ---
EXAMINATION: US RETROPERITONEAL LIMITED (RENAL ONLY) CLINICAL INFORMATION: Renal stone. COMPARISON: Previous renal ultrasound most recent May [address] of November 2023 TECHNIQUE: Real-time imaging of the kidneys. FINDINGS: RIGHT KIDNEY: 8.4 x 3.7 x 4.1 cm (SAG x AP x TRV). The kidney is normal in size, contour, and echogenicity. Renal cortical thickness is normal. Small cyst in the upper pole measuring 5 mm. 4 mm echogenic density in the lower pole questionable for a stone. No hydronephrosis. LEFT KIDNEY: 8.1 x 3.7 x 4.3 cm (SAG x AP x TRV). The kidney is normal in size, contour, and echogenicity. Renal cortical thickness is normal. Several echogenic foci in the left kidney without twinkle artifact or shadowing. Difficult to exclude small stone(s). No focal parenchymal lesions. No hydronephrosis. US/US renal BI IMPRESSION: Probable 4 mm right lower pole stone and question small punctate left renal stone(s). No hydronephrosis. Small right renal cyst. Electronically signed by: Nicol Hernandez MD 08/26/2025 05:34 PM EST
== END 2025-08-26 15:13 | disposition home or self-care (01) ==
LOC: HO.US 15:12
PROVIDERS: Visit Provider Nurse Practitioner Family
DX: N20.0 Calculus of kidney (principal)
CPT/HCPCS: 76775

== ENCOUNTER → 2025-08-26 15:16 | Outpatient (BNV) | payer OTHER, SELFPAY | PROVIDERS: Visit Provider Radiology Diagnostic Radiology | DX: N20.0 Calculus of kidney (principal); N28.1 Cyst of kidney, acquired | CPT/HCPCS: 76775 ==

== ENCOUNTER 2025-09-23 14:16 | Outpatient (AMB) | payer OTHER, SELFPAY ==
--- NOTE | 2025-09-23 14:24 | MHC.OFFVIS ---
Intake Visit Reasons: US/UA(SET) Intake Note: Patient is present for US/UA Urology Medication:NONE Antibiotic Allergy:NONE Blood Thinner:NONE Negative Checker Required: Yes Negative Checker Services: Negative Checker Present Negative Checker Name: Lisa Israel Allergies No Known Allergies (No Known Allergies*) Allergy (Verified 09/23/25 21:16) Medication List - Last Reconciled 09/23/25 by BRANDON Brewer atorvastatin 10 mg PO BEDTIME cholecalciferol (vitamin D3) 1,250 mcg PO QWEEK ibuprofen 600 mg PO Q6H PRN HPI Comments Details: The Grace is a pleasant 59-year-old Yakut-speaking female patient of Dr. Paredes who was accompanied by her [id number] at today's office visit. She presents to the office today for follow-up of her nephrolithiasis. In discussion with the patient today she reports to be doing and feeling well. She currently denies any bothersome urinary issues or concerns. Recent renal imaging results reviewed with the patient today. Renal ultrasound 09/18 bilateral kidneys are normal in size, contour, and echogenicity. Probable 4 mm right lower pole stone and question of small punctate left renal stones. No hydronephrosis noted bilaterally. Small right renal cysts. When asked she denies urinary urgency, urinary frequency, incontinence, nocturia, hematuria, dysuria, foul smelling urine, changes to urinary stream, flank pain, fever, and or chills. She is happy with her current voiding parameters. In office urinalysis results reviewed with the patient today. When asked she reports to be drinking plenty of water daily. We did discuss the importance of adequate hydration as previous imaging did not know any nephrolithiasis. We did discussed further workup to include Litholink and labs however she declines at this time. She otherwise offers no other issues or concerns at this time. [facility] Medical History Colon cancer screening (~01/20/23) section wound complications (~1988) No pertinent past medical history Surgical History Status post laparoscopic cholecystectomy Family History Mother Stomach cancer Father Renal cell cancer HTN (hypertension) Diabetes Brother Liver cancer HTN (hypertension) Diabetes Social History Household Members: Spouse Housing: Apartment Do you presently have visiting nurse or other home services: No Alcohol intake: never Patient Tobacco Use Status: Never used Tobacco e-Cigarette/Vaping Use: Never Used Second Hand Smoke Exposure: No service: No Current occupational status: employed Cognitive needs: No Hearing needs: No Vision needs: Yes (Glasses) Review of Systems Const All systems reviewed & are unremarkable except as noted in HPI and below Physical Exam Const General: cooperative, healthy appearing, comfortable, no acute distress, well developed, alert and awake Nutritional Appearance: average body habitus Orientation/consciousness: patient oriented x3 Limitations: language barrier HEENT Head: Yes normal to inspection, Yes normocephalic and Yes atraumatic Ears: hearing grossly normal bilaterally Eyes General: appearance normal, both eyes and all related structures Neck Neck: Yes normal visual inspection and Yes trachea midline Chest Chest palpation & inspection: normal inspection of the chest Resp Effort & Inspection: normal respiratory effort and able to speak in complete sentences Cardio Rate: regular rate GI Inspection: Yes normal to inspection General: Yes no CVA tenderness Back/Spine/Pelvis Back: no CVA tenderness Skin General skin exam: no rashes or lesions noted Neuro General: patient oriented x3 Extrem General: Yes normal to inspection Psych Appearance: grossly normal and well kempt Mental Status: mental status grossly normal Speech and movement: Normal speech and movement present and Clear speech present Affect: normal affect Attitude: cooperative Thought process: Normal thought process present Thought content: Normal thought content present Insight: Fair insight present (Psych) Judgement: Fair judgement present (Psych) Results AMB Urinalysis, Automated UA Leukoctes 0 Sarath/uL Last Edit by CAPRI Chase on 09/23/25 14:53 UA Nitrite Negative Last Edit by CAPRI Chase on 09/23/25 14:53 UA Urobilinogen 0.2 mg/dL Last Edit by CAPRI Chase on 09/23/25 14:53 UA Protein 0 mg/dL Last Edit by CAPRI Chase on 09/23/25 14:53 UA pH 6.0 Last Edit by CAPRI Chase on 09/23/25 14:53 UA Blood 0 True/uL Last Edit by CAPRI Chase on 09/23/25 14:53 UA Specific [place] 1.015 Last Edit by CAPRI Chase on 09/23/25 14:53 UA Ketone Negative Last Edit by CAPRI Chase on 09/23/25 14:53 UA Bilirubin 0 mg/dL Last Edit by CAPRI Chase on 09/23/25 14:53 UA Glucose 0 mg/dL Last Edit by CAPRI Chase on 09/23/25 14:53 Results Reviewed Results Reviewed: Laboratory Last Values Urine pH (Auto) 6.0 09/23/25 14:30 Specific [place] (Auto) 1.015 09/23/25 14:30 Urine Protein (Auto) 0 mg/dL 09/23/25 14:30 Glucose (UA)(Auto) 0 mg/dL 09/23/25 14:30 Urine Ketones (Auto) Negative 09/23/25 14:30 Urine Blood (Auto) 0 True/uL 09/23/25 14:30 Urine Nitrite (Auto) Negative 09/23/25 14:30 Urine Bilirubin (Auto) 0 mg/dL 09/23/25 14:30 Urine Urobilinogen (Auto) 0.2 mg/dL 09/23/25 14:30 Leukocyte Esterase (Auto) 0 Sarath/uL 09/23/25 14:30 Date of Service: 08/26/25 Procedure(s): US renal BI FINDINGS: RIGHT KIDNEY: 8.4 x 3.7 x 4.1 cm (SAG x AP x TRV). The kidney is normal in size, contour, and echogenicity. Renal cortical thickness is normal. Small cyst in the upper pole measuring 5 mm. 4 mm echogenic density in the lower pole questionable for a stone. No hydronephrosis. LEFT KIDNEY: 8.1 x 3.7 x 4.3 cm (SAG x AP x TRV). The kidney is normal in size, contour, and echogenicity. Renal cortical thickness is normal. Several echogenic foci in the left kidney without twinkle artifact or shadowing. Difficult to exclude small stone(s). No focal parenchymal lesions. No hydronephrosis. IMPRESSION: Probable 4 mm right lower pole stone and question small punctate left renal stone(s). No hydronephrosis. Small right renal cyst. Assessment & Plan Assessment & Plan (1) Nephrolithiasis: Code(s): N20.0 - Calculus of kidney Category: Medical Plan In office urinalysis results with the patient today; as noted above. Most recent renal imaging results with the patient today; as noted above. She currently denies any bothersome urinary issues or concerns. She reports be happy with current voiding parameters. We discussed the importance of adequate hydration relation to nephrolithiasis as well as overall health and well-being. We discussed adding 1 oz of lemon juice to water daily. We discussed further workup to include Litholink and labs All questions were answered. Will obtain renal ultrasound in 6 months Will obtain KUB in 6 months follow-up in 6 months with imaging; or sooner with any issues, concerns, and or questions. Orders: Orders AMB Urinalysis Automated Today Z13.9 - Encounter for screening, unspecified XR KUB 6 Months N20.0 - Calculus of kidney US renal BI 6 Months N20.0 - Calculus of kidney Patient Instructions: The patient had an opportunity to ask questions regarding the treatment plan. All questions were answered. Physical exam, labs, and imaging were discussed and reviewed in detail. As well as risks, benefits, and discussion of treatment choices. No major barriers to understanding were identified. The patient expressed understanding and agreement with the above treatment plan. The patient was made aware they should contact our office by phone for worsening of their current condition, the appearance of new symptoms, or with any questions or concerns. Compliance is encouraged with any medications and follow up testing that is ordered. It is a privilege to be allowed the opportunity to participate in? your urological care.? Again, if you have any questions or concerns If you have any questions or concerns please do not hesitate to contact me. The office is [phone]. This note is constructed using voice recognition software. While every effort has been made to ensure accuracy sanitation worker cleaning machinery errors may have been included. Yours sincerely, BRANDON Brewer Coding Level of Care Code Est Pt Level 3 (27235) Add On Problem Visit Only Diagnoses Nephrolithiasis N20.0
== END 2025-09-23 14:57 | disposition home or self-care (01) ==
LOC: HO.HUSH 14:17
PROVIDERS: PCP Internal Medicine; Visit Provider Nurse Practitioner Family
DX: N20.0 Calculus of kidney (principal); Z13.9 Encounter for screening, unspecified
CPT/HCPCS: 99213; G2211

== ENCOUNTER → 2025-09-23 14:16 | Outpatient (BNVA) | payer OTHER, SELFPAY | PROVIDERS: PCP Internal Medicine; Visit Provider Nurse Practitioner Family | DX: N20.0 Calculus of kidney (principal) | CPT/HCPCS: 81003 ==